=== PATIENT | female | born 1935 | race Caucasian/White ===

== ENCOUNTER 2017-03-11 21:44 | Emergency (ER) | payer MEDICARE ==
[2017-03-11 21:48] VITALS: BP 182/84; PULSE 76; RESP 18; TEMP 98.2
[2017-03-11] MEDS ORDERED: SODIUM CHLORIDE 0.9% 1,000 ML IV STA ×2 (21:58→23:09)
--- NOTE | 2017-03-11 21:58 | ED ---
General Adult HPI - General Chief complaint: Weakness Stated complaint: Weakness Time Seen by Provider: 03/11/17 21:57 Source: patient, family, RN notes reviewed, old records reviewed Mode of arrival: wheelchair Limitations: no limitations - History of Present Illness Initial comments: This is an 81-year-old female here for evaluation of weakness, not acting appropriately, patient's poor historian history obtained from . states patient is not eating that drinking, poor appetite, decreased activity level. - Related Data Home Medications Medication Instructions Recorded Confirmed Atorvastatin [Lipitor] 40 mg PO HS 05/17/15 03/11/17 Latanoprost 1 drop BOTH EYES HS 05/17/15 03/11/17 Omeprazole 40 mg PO QAM 05/17/15 03/11/17 ALPRAZolam [Xanax] 0.25 mg PO TID PRN 03/11/17 03/11/17 Calcium Carbonate/Vitamin D3 1 tab PO DAILY 03/11/17 03/11/17 [Calcium 600-Vit D3 400 Caplet] Gabapentin [Neurontin] 100 mg PO BID 03/11/17 03/11/17 Galantamine HBr [Razadyne] 12 mg PO BID 03/11/17 03/11/17 Magnesium Chloride [Slow Mag] 64 mg PO HS 03/11/17 03/11/17 Memantine [Namenda] 10 mg PO BID 03/11/17 03/11/17 Multivit-Min/Iron/Folic/Lutein 1 tab PO DAILY 03/11/17 03/11/17 [Centrum Silver Women Tablet] traMADol HCL [traMADol HCL ER] 200 mg PO BID 03/11/17 03/11/17 Allergies Allergy/AdvReac Type Severity Reaction Status Date / Time No Known Allergies Allergy Verified 03/11/17 22:28 Review of Systems ROS Statement: Those systems with pertinent positive or pertinent negative responses have been documented in the HPI. ROS Other: All systems not noted in ROS Statement are negative. Past Medical History Past Medical History: Dementia, Eye Disorder, GERD/Reflux, Hearing Disorder / Deafness, Hyperlipidemia, Memory Impairment, Musculoskeletal Disorder, Osteoarthritis (OA) Additional Past Medical History / Comment(s): 05-17-15 SYNCOPAL/FALL EPISODE, OTHER HX: CONSTIPATION, MEMORY PROBLEMS HAS EXELON PATCHES History of Any Multi-Drug Resistant Organisms: None Reported Past Surgical History: Adenoidectomy, Breast Surgery, Hysterectomy, Tonsillectomy, Tubal Ligation Additional Past Surgical History / Comment(s): Bilateral cataract surgeries, right breast lumpectomy 1983, bladder suspension surgery, tubal ligation, colonoscopy in 1999 2006 2011, EGD 2011, bronchoscopy 1987, hemorrhoids, laryngoscope 1989, thumb surgery 2002. 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 Smoking Status: Never smoker Past Alcohol Use History: None Reported Past Drug Use History: None Reported - Past Family History Mother Family Medical History: Coronary Artery Disease (CAD) Father Family Medical History: Dementia Daughter(s) Family Medical History: No Reported History Son(s) Family Medical History: No Reported History General Exam Limitations: no limitations General appearance: alert, in no apparent distress Head exam: Present: atraumatic, normocephalic, normal inspection Eye exam: Present: normal appearance, PERRL, EOMI. Absent: scleral icterus, conjunctival injection, periorbital swelling ENT exam: Present: normal exam, mucous membranes moist Neck exam: Present: normal inspection. Absent: tenderness, meningismus, lymphadenopathy Respiratory exam: Present: normal lung sounds bilaterally. Absent: respiratory distress, wheezes, rales, rhonchi, stridor Cardiovascular Exam: Present: regular rate, normal rhythm, normal heart sounds. Absent: systolic murmur, diastolic murmur, rubs, gallop, clicks GI/Abdominal exam: Present: soft, normal bowel sounds. Absent: distended, tenderness, guarding, rebound, rigid Extremities exam: Present: normal inspection, full ROM, normal capillary refill. Absent: tenderness, pedal edema, joint swelling, calf tenderness Back exam: Present: normal inspection Neurological exam: Present: alert, oriented X3, CN II-XII intact Psychiatric exam: Present: normal affect, normal mood Skin exam: Present: warm, dry, intact, normal color. Absent: rash Course Vital Signs 03/11/17 21:45 Temperature 98.2 F Pulse Rate 76 Respiratory 18 Rate Blood Pressure 182/84 O2 Sat by Pulse 98 Oximetry - Reevaluation(s) Reevaluation #1: 03/11/17 22:17 Further questioning, is concerned with patient's behavior, she was retching and nauseous today. The patient herself continues to deny any complaints at this time EKG Findings - EKG Comments: EKG Findings:: EKG shows normal sinus rhythm rate of 72, DC 144, QRS 86, QTc 413 Medical Decision Making - Medical Decision Making 81 female here with weakness, lab work is normal no urinary tract infection, patient can be discharged home - Lab Data Result diagrams: 03/11/17 22:10 03/11/17 22:10 Lab Results 03/11/17 03/11/17 03/11/17 Range/Units 22:01 22:10 22:10 WBC 3.9 (3.8-10.6) k/uL RBC 4.97 (3.80-5.40) m/uL Hgb 14.9 (11.4-16.0) gm/dL Hct 45.9 (34.0-46.0) % MCV 92.3 (80.0-100.0) fL MCH 30.0 (25.0-35.0) pg MCHC 32.5 (31.0-37.0) g/dL RDW 12.9 (11.5-15.5) % Plt Count 166 (150-450) k/uL Neutrophils % 68 % Lymphocytes % 21 % Monocytes % 8 % Eosinophils % 1 % Basophils % 1 % Neutrophils # 2.7 (1.3-7.7) k/uL Lymphocytes # 0.8 L (1.0-4.8) k/uL Monocytes # 0.3 (0-1.0) k/uL Eosinophils # 0.0 (0-0.7) k/uL Basophils # 0.0 (0-0.2) k/uL PT (9.0-12.0) sec INR (<1.1) APTT (22.0-30.0) sec Sodium (137-145) mmol/L Potassium (3.5-5.1) mmol/L Chloride (98-107) mmol/L Carbon Dioxide (22-30) mmol/L Anion Gap mmol/L BUN (7-17) mg/dL Creatinine (0.52-1.04) mg/dL Est GFR (MDRD) Af Amer (>60 ml/min/1.73 sqM) Est GFR (MDRD) Non-Af (>60 ml/min/1.73 sqM) Glucose (74-99) mg/dL POC Glucose (mg/dL) 95 (75-99) mg/dL POC Glu [employer] ID Inder Richards Plasma Lactic Acid Dejuan (0.7-2.0) mmol/L Calcium (8.4-10.2) mg/dL Phosphorus (2.5-4.5) mg/dL Magnesium (1.6-2.3) mg/dL Total Bilirubin (0.2-1.3) mg/dL AST (14-36) U/L ALT (9-52) U/L Alkaline Phosphatase (38-126) U/L Total Creatine Kinase 181 H (30-135) U/L CK-MB (CK-2) 3.1 H* (0.0-2.4) ng/mL CK-MB (CK-2) Rel Index 1.7 Troponin I <0.012 (0.000-0.034) ng/mL Total Protein (6.3-8.2) g/dL Albumin (3.5-5.0) g/dL TSH (0.465-4.680) mIU/L Urine Color Urine Appearance (Clear) Urine pH (5.0-8.0) Ur Specific [place] (1.001-1.035) Urine Protein (Negative) Urine Glucose (UA) (Negative) Urine Ketones (Negative) Urine Blood (Negative) Urine Nitrite (Negative) Urine Bilirubin (Negative) Urine Urobilinogen (<2.0) mg/dL Ur Leukocyte Esterase (Negative) Urine RBC (0-5) /hpf Urine WBC (0-5) /hpf Urine Mucus (None) /hpf 03/11/17 03/11/17 03/11/17 Range/Units 22:10 22:10 22:10 WBC (3.8-10.6) k/uL RBC (3.80-5.40) m/uL Hgb (11.4-16.0) gm/dL Hct (34.0-46.0) % MCV (80.0-100.0) fL MCH (25.0-35.0) pg MCHC (31.0-37.0) g/dL RDW (11.5-15.5) % Plt Count (150-450) k/uL Neutrophils % % Lymphocytes % % Monocytes % % Eosinophils % % Basophils % % Neutrophils # (1.3-7.7) k/uL Lymphocytes # (1.0-4.8) k/uL Monocytes # (0-1.0) k/uL Eosinophils # (0-0.7) k/uL Basophils # (0-0.2) k/uL PT 10.3 (9.0-12.0) sec INR 1.0 (<1.1) APTT 23.5 (22.0-30.0) sec Sodium 137 (137-145) mmol/L Potassium 4.3 (3.5-5.1) mmol/L Chloride 102 (98-107) mmol/L Carbon Dioxide 29 (22-30) mmol/L Anion Gap 6 mmol/L BUN 14 (7-17) mg/dL Creatinine 0.55 (0.52-1.04) mg/dL Est GFR (MDRD) Af Amer >60 (>60 ml/min/1.73 sqM) Est GFR (MDRD) Non-Af >60 (>60 ml/min/1.73 sqM) Glucose 100 H (74-99) mg/dL POC Glucose (mg/dL) (75-99) mg/dL POC Glu [employer] ID Plasma Lactic Acid Dejuan 0.7 (0.7-2.0) mmol/L Calcium 9.2 (8.4-10.2) mg/dL Phosphorus 3.2 (2.5-4.5) mg/dL Magnesium 2.0 (1.6-2.3) mg/dL Total Bilirubin 1.1 (0.2-1.3) mg/dL AST 37 H (14-36) U/L ALT 31 (9-52) U/L Alkaline Phosphatase 41 (38-126) U/L Total Creatine Kinase (30-135) U/L CK-MB (CK-2) (0.0-2.4) ng/mL CK-MB (CK-2) Rel Index Troponin I (0.000-0.034) ng/mL Total Protein 6.9 (6.3-8.2) g/dL Albumin 4.3 (3.5-5.0) g/dL TSH 0.885 (0.465-4.680) mIU/L Urine Color Urine Appearance (Clear) Urine pH (5.0-8.0) Ur Specific [place] (1.001-1.035) Urine Protein (Negative) Urine Glucose (UA) (Negative) Urine Ketones (Negative) Urine Blood (Negative) Urine Nitrite (Negative) Urine Bilirubin (Negative) Urine Urobilinogen (<2.0) mg/dL Ur Leukocyte Esterase (Negative) Urine RBC (0-5) /hpf Urine WBC (0-5) /hpf Urine Mucus (None) /hpf 03/11/17 Range/Units 23:00 WBC (3.8-10.6) k/uL RBC (3.80-5.40) m/uL Hgb (11.4-16.0) gm/dL Hct (34.0-46.0) % MCV (80.0-100.0) fL MCH (25.0-35.0) pg MCHC (31.0-37.0) g/dL RDW (11.5-15.5) % Plt Count (150-450) k/uL Neutrophils % % Lymphocytes % % Monocytes % % Eosinophils % % Basophils % % Neutrophils # (1.3-7.7) k/uL Lymphocytes # (1.0-4.8) k/uL Monocytes # (0-1.0) k/uL Eosinophils # (0-0.7) k/uL Basophils # (0-0.2) k/uL PT (9.0-12.0) sec INR (<1.1) APTT (22.0-30.0) sec Sodium (137-145) mmol/L Potassium (3.5-5.1) mmol/L Chloride (98-107) mmol/L Carbon Dioxide (22-30) mmol/L Anion Gap mmol/L BUN (7-17) mg/dL Creatinine (0.52-1.04) mg/dL Est GFR (MDRD) Af Amer (>60 ml/min/1.73 sqM) Est GFR (MDRD) Non-Af (>60 ml/min/1.73 sqM) Glucose (74-99) mg/dL POC Glucose (mg/dL) (75-99) mg/dL POC Glu [employer] ID Plasma Lactic Acid Dejuan (0.7-2.0) mmol/L Calcium (8.4-10.2) mg/dL Phosphorus (2.5-4.5) mg/dL Magnesium (1.6-2.3) mg/dL Total Bilirubin (0.2-1.3) mg/dL AST (14-36) U/L ALT (9-52) U/L Alkaline Phosphatase (38-126) U/L Total Creatine Kinase (30-135) U/L CK-MB (CK-2) (0.0-2.4) ng/mL CK-MB (CK-2) Rel Index Troponin I (0.000-0.034) ng/mL Total Protein (6.3-8.2) g/dL Albumin (3.5-5.0) g/dL TSH (0.465-4.680) mIU/L Urine Color Light Yellow Urine Appearance Clear (Clear) Urine pH 7.5 (5.0-8.0) Ur Specific [place] 1.006 (1.001-1.035) Urine Protein Negative (Negative) Urine Glucose (UA) Negative (Negative) Urine Ketones 1+ H (Negative) Urine Blood Negative (Negative) Urine Nitrite Negative (Negative) Urine Bilirubin Negative (Negative) Urine Urobilinogen <2.0 (<2.0) mg/dL Ur Leukocyte Esterase Moderate H (Negative) Urine RBC <1 (0-5) /hpf Urine WBC 3 (0-5) /hpf Urine Mucus Rare H (None) /hpf - Radiology Data Radiology results: report reviewed (Chest x-ray is negative for acute disease), image reviewed Disposition Clinical Impression: Dehydration, Weakness Disposition: HOME SELF-CARE Condition: Good Instructions: Weakness (ED) Referrals: Desmond John MD [Primary Care Provider] - 1-2 days
[2017-03-11 22:03] LABS: Glucose,Whole Blood 95 mg/dL (75-99)
[2017-03-11 22:17] LABS: Basophils % (A) 1 %; CH 30.1; CHCM 32.7; Eosinophils % (A) 1 %; HCT 45.9 % (34.0-46.0); HDW 2.39; HGB 14.9 gm/dL (11.4-16.0); Luc # (Auto) 0.07; Luc % (Auto) 2; Lymphocytes # (A) 0.8 k/uL (1.0-4.8); Lymphocytes % (A) 21 %; MCHC 32.5 g/dL (31.0-37.0); MCV 92.3 fL (80.0-100.0); Mean Platelet Volume 6.7; Monocytes # (A) 0.3 k/uL (0-1.0); Monocytes % (A) 8 %; Neutrophils # (A) 2.7 k/uL (1.3-7.7); Neutrophils % (A) 68 %; RBC 4.97 m/uL (3.80-5.40); RDW 12.9 % (11.5-15.5); WBC 3.9 k/uL (3.8-10.6); WBC (Perox) 3.92
[2017-03-11 22:25] LABS: Partial Thromboplastin Time 23.5 sec (22.0-30.0); Prothrombin Time 10.3 sec (9.0-12.0)
[2017-03-11 22:28] LABS: ALT 31 U/L (9-52); AST 37 U/L (14-36); Alkaline Phosphatase 41 U/L (38-126); Anion Gap 6 mmol/L; Blood Urea Nitrogen 14 mg/dL (7-17); Calcium 9.2 mg/dL (8.4-10.2); Carbon Dioxide 29 mmol/L (22-30); Chloride 102 mmol/L (98-107); Glucose 100 mg/dL (74-99); Non-African American GFR(MDRD) >60 (>60 ml/min/1.73 sqM); Phosphorous 3.2 mg/dL (2.5-4.5); Potassium 4.3 mmol/L (3.5-5.1); Sodium 137 mmol/L (137-145); Total Bilirubin 1.1 mg/dL (0.2-1.3); Total Protein 6.9 g/dL (6.3-8.2)
--- NOTE | 2017-03-11 22:42 | XR ---
EXAM: XR Chest, 2 Views CLINICAL HISTORY: Reason: Weakness TECHNIQUE: Frontal and lateral views of the chest. COMPARISON: July 23, 2015. FINDINGS: Lungs: Hyperinflated. No consolidation. Pleural space: Unremarkable. No pleural effusions. No pneumothorax. Heart: Unremarkable. No cardiomegaly. Mediastinum: Unremarkable. Bones/joints: Unremarkable. IMPRESSION: Findings suggestive of chronic obstructive airways disease. Otherwise, no acute cardiopulmonary process.
[2017-03-11 22:44] LABS: Creatine Kinase 181 U/L (30-135)
[2017-03-11 22:57] LABS: Troponin I <0.012 ng/mL (0.000-0.034)
[2017-03-11 23:02] LABS: Creatine Kinase MB 3.1 ng/mL (0.0-2.4)
[2017-03-11 23:12] LABS: Appearance,Urine Clear (Clear); Bilirubin,Urine Negative (Negative); Glucose,Urine (UA) Negative (Negative); Ketones,Urine 1+ (Negative); Leukocyte Esterase,Urine Moderate (Negative); Mucus,Urine Rare /hpf; Nitrite,Urine Negative (Negative); PH, Urine 7.5 (5.0-8.0); Particle Count 768; Protein,Urine Negative (Negative); RBC,Urine <1 /hpf (0-5); Specific Gravity,Urine 1.006 (1.001-1.035); UA Billing (MACRO vs. MICRO) MICRO; Urobilinogen,Urine <2.0 mg/dL (<2.0); WBC,Urine 3 /hpf (0-5)
== END 2017-03-12 | disposition home or self-care (01) ==
LOC: EC 21:44
DX: E86.0 Dehydration (principal); R53.1 Weakness; F03.90 Unspecified dementia, unspecified severity, without behavioral disturbance, psychotic disturbance, mood disturbance, and anxiety; K21.9 Gastro-esophageal reflux disease without esophagitis; E78.5 Hyperlipidemia, unspecified; M19.90 Unspecified osteoarthritis, unspecified site; Z79.891 Long term (current) use of opiate analgesic; Z79.899 Other long term (current) drug therapy
CPT/HCPCS: 36415; 71020; 80053; 81001; 82550; 82553; 83605; 83735; 84100; 84443; 84484; 85025; 85610; 85730; 87086; 93005; 96361; 99285

== ENCOUNTER 2017-03-27 18:48 | Emergency (ER) | payer MEDICARE ==
[2017-03-27] MEDS ORDERED: ONDANSETRON 4 MG/2 ML VIAL IVP STA (20:07)
[2017-03-27] MEDS ORDERED: SODIUM CHLORIDE 0.9% 1,000 ML IV ONE (20:07)
--- NOTE | 2017-03-27 20:20 | ED ---
General Adult HPI - General Chief complaint: Nausea/Vomiting/Diarrhea Stated complaint: NAUSEA,WEAKNESS Time Seen by Provider: 03/27/17 19:39 Source: patient, family, RN notes reviewed Mode of arrival: wheelchair Limitations: no limitations - History of Present Illness Initial comments: 81-year-old female presenting for nausea and vomiting for the past 2 days. states she has a history of dementia. He states she has had decreased appetite over the past 2 days. She has also had recurrent episodes of nausea and vomiting associated with eating. Patient denies any significant abdominal pain associated. Denies any fevers chills. She denies any chest pain or shortness breath. She has not tried any new medications for the symptoms. She is taking her normal medications. She has not had any decreased mental status associated per . states he's been trying to supplement lack of appetite with sure, but she has vomited after drinking these. He denies that she has fallen or had any other injury. - Related Data Home Medications Medication Instructions Recorded Confirmed Atorvastatin [Lipitor] 40 mg PO HS 05/17/15 03/27/17 Latanoprost 1 drop BOTH EYES HS 05/17/15 03/27/17 Omeprazole 40 mg PO QAM 05/17/15 03/27/17 ALPRAZolam [Xanax] 0.25 mg PO TID PRN 03/11/17 03/27/17 Calcium Carbonate/Vitamin D3 1 tab PO DAILY 03/11/17 03/27/17 [Calcium 600-Vit D3 400 Caplet] Gabapentin [Neurontin] 100 mg PO BID 03/11/17 03/27/17 Galantamine HBr [Razadyne] 12 mg PO BID 03/11/17 03/27/17 Magnesium Chloride [Slow Mag] 64 mg PO HS 03/11/17 03/27/17 Memantine [Namenda] 10 mg PO BID 03/11/17 03/27/17 Multivit-Min/Iron/Folic/Lutein 1 tab PO DAILY 03/11/17 03/27/17 [Centrum Silver Women Tablet] traMADol HCL [traMADol HCL ER] 200 mg PO BID 03/11/17 03/27/17 hydrOXYzine HCL 10 mg PO DAILY 03/27/17 03/27/17 Previous Rx's Medication Instructions Recorded Ondansetron Odt [Zofran Odt] 4 mg PO Q8HR PRN #12 tab 03/27/17 Allergies Allergy/AdvReac Type Severity Reaction Status Date / Time No Known Allergies Allergy Verified 03/27/17 20:03 Review of Systems ROS Statement: Those systems with pertinent positive or pertinent negative responses have been documented in the HPI. ROS Other: All systems not noted in ROS Statement are negative. Past Medical History Past Medical History: Dementia, Eye Disorder, GERD/Reflux, Hearing Disorder / Deafness, Hyperlipidemia, Memory Impairment, Musculoskeletal Disorder, Osteoarthritis (OA) Additional Past Medical History / Comment(s): 05-17-15 SYNCOPAL/FALL EPISODE, OTHER HX: CONSTIPATION, MEMORY PROBLEMS HAS EXELON PATCHES History of Any Multi-Drug Resistant Organisms: None Reported Past Surgical History: Adenoidectomy, Breast Surgery, Hysterectomy, Tonsillectomy, Tubal Ligation Additional Past Surgical History / Comment(s): Bilateral cataract surgeries, right breast lumpectomy 1983, bladder suspension surgery, tubal ligation, colonoscopy in 1999 2006 2011, EGD 2011, bronchoscopy 1987, hemorrhoids, laryngoscope 1989, thumb surgery 2002. 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 Smoking Status: Never smoker Past Alcohol Use History: None Reported Past Drug Use History: None Reported - Past Family History Mother Family Medical History: Coronary Artery Disease (CAD) Father Family Medical History: Dementia Daughter(s) Family Medical History: No Reported History Son(s) Family Medical History: No Reported History General Exam - General Exam Comments Initial Comments: General: Awake and Alert. No acute distress. Does not appear acutely ill. Eyes: JESSY, EOM intact. No nystagmus. No scleral icterus. HENT: Atraumatic, normocephalic. Mucous membranes moist. Hard of hearing. Neck: The neck is supple, there is no tenderness or JVD. Cardiovascular: Regular rate and rhythm. No murmur, rub, or gallop is appreciated. Distal pulses intact. Respiratory: Lungs are clear to auscultation bilaterally. No wheezes, rales, rhonchi. No respiratory distress. Gastrointestinal: Soft, Nontender. No rebound or guarding. Non-distended. No masses or organomegaly noted. No CVA tenderness. Musculoskeletal: No tenderness. Normal ROM. No gross deformity. No strength deficits. Neurological: A&Ox2. CN II-XII grossly intact, There are no obvious motor or sensory deficits. Coordination appears grossly intact. Speech is normal. Skin: Skin is warm and dry and no rashes or lesions are noted. Psychiatric: Cooperative, appropriate mood & affect, normal judgment. Limitations: no limitations Course Vital Signs 03/27/17 19:17 Temperature 98.9 F Pulse Rate 70 Respiratory 16 Rate Blood Pressure 154/78 O2 Sat by Pulse 98 Oximetry EKG Findings - EKG Comments: EKG Findings:: EKG 20:19. Normal sinus rhythm. Rate 67. Normal axis. No STEMI. Normal EKG. Medical Decision Making - Medical Decision Making 81-year-old female presenting for nausea and vomiting. Patient appears comfortable on initial examination. Abdomen is nontender without evidence of acute peritonitis. Lab workup and imaging ordered. IV fluids and Zofran ordered. Lab work reviewed and grossly stable. KUB without evidence of acute obstructive process. Patient reevaluated, states she's feeling improved. Discussed uncertain etiology of symptoms at this time. Discussed possible gastroenteritis. Discussed reassuring findings today today and low suspicion of obstruction or severe infectious etiology. Patient was provided with by mouth challenge, which she tolerated without issue. Discussed symptomatic management with Zofran and Rx provided. is comfortable taking her home. Discussed close follow- up with PCP. Discussed concerning signs symptoms are immediate return to the ED. Patient and agreeable with plan and discharge home. - Lab Data Result diagrams: 03/27/17 20:25 03/27/17 20:25 Lab Results 03/27/17 03/27/17 03/27/17 Range/Units 20:25 20:25 20:34 WBC 3.8 (3.8-10.6) k/uL RBC 4.51 (3.80-5.40) m/uL Hgb 13.9 (11.4-16.0) gm/dL Hct 41.8 (34.0-46.0) % MCV 92.7 (80.0-100.0) fL MCH 30.8 (25.0-35.0) pg MCHC 33.2 (31.0-37.0) g/dL RDW 12.9 (11.5-15.5) % Plt Count 170 (150-450) k/uL Neutrophils % 68 % Lymphocytes % 22 % Monocytes % 7 % Eosinophils % 1 % Basophils % 1 % Neutrophils # 2.6 (1.3-7.7) k/uL Lymphocytes # 0.8 L (1.0-4.8) k/uL Monocytes # 0.2 (0-1.0) k/uL Eosinophils # 0.0 (0-0.7) k/uL Basophils # 0.0 (0-0.2) k/uL Sodium 135 L (137-145) mmol/L Potassium 4.1 (3.5-5.1) mmol/L Chloride 100 (98-107) mmol/L Carbon Dioxide 28 (22-30) mmol/L Anion Gap 7 mmol/L BUN 13 (7-17) mg/dL Creatinine 0.53 (0.52-1.04) mg/dL Est GFR (MDRD) Af Amer >60 (>60 ml/min/1.73 sqM) Est GFR (MDRD) Non-Af >60 (>60 ml/min/1.73 sqM) Glucose 90 (74-99) mg/dL Calcium 9.1 (8.4-10.2) mg/dL Magnesium 2.0 (1.6-2.3) mg/dL Total Bilirubin 0.9 (0.2-1.3) mg/dL AST 24 (14-36) U/L ALT 27 (9-52) U/L Alkaline Phosphatase 43 (38-126) U/L Total Protein 6.3 (6.3-8.2) g/dL Albumin 3.9 (3.5-5.0) g/dL Lipase 74 (23-300) U/L Urine Color Colorless Urine Appearance Clear (Clear) Urine pH 8.0 (5.0-8.0) Ur Specific [place] 1.003 (1.001-1.035) Urine Protein Negative (Negative) Urine Glucose (UA) Negative (Negative) Urine Ketones 1+ H (Negative) Urine Blood Negative (Negative) Urine Nitrite Negative (Negative) Urine Bilirubin Negative (Negative) Urine Urobilinogen <2.0 (<2.0) mg/dL Ur Leukocyte Esterase Negative (Negative) - Radiology Data Radiology results: report reviewed, image reviewed Disposition Clinical Impression: Nausea and vomiting, Nonspecific abdominal pain Disposition: HOME SELF-CARE Condition: Stable Instructions: Acute Nausea and Vomiting (ED), Abdominal Pain (ED) Prescriptions: Ondansetron Odt [Zofran Odt] 4 mg PO Q8HR PRN #12 tab PRN Reason: Nausea Referrals: Desmond John MD [Primary Care Provider] - 1-2 days Time of Disposition: 21:55
[2017-03-27 20:43] LABS: Basophils % (A) 1 %; CH 30.5; Eosinophils % (A) 1 %; HCT 41.8 % (34.0-46.0); HDW 2.38; HGB 13.9 gm/dL (11.4-16.0); Luc # (Auto) 0.08; Luc % (Auto) 2; Lymphocytes # (A) 0.8 k/uL (1.0-4.8); Lymphocytes % (A) 22 %; MCH 30.8 pg (25.0-35.0); MCHC 33.2 g/dL (31.0-37.0); MCV 92.7 fL (80.0-100.0); Mean Platelet Volume 7.1; Monocytes # (A) 0.2 k/uL (0-1.0); Monocytes % (A) 7 %; Neutrophils # (A) 2.6 k/uL (1.3-7.7); Neutrophils % (A) 68 %; RBC 4.51 m/uL (3.80-5.40); RDW 12.9 % (11.5-15.5); WBC 3.8 k/uL (3.8-10.6); WBC (Perox) 3.79
[2017-03-27 20:44] LABS: Appearance,Urine Clear (Clear); Bilirubin,Urine Negative (Negative); Glucose,Urine (UA) Negative (Negative); Ketones,Urine 1+ (Negative); Leukocyte Esterase,Urine Negative (Negative); Nitrite,Urine Negative (Negative); Protein,Urine Negative (Negative); Specific Gravity,Urine 1.003 (1.001-1.035); UA Billing (MACRO vs. MICRO) CHEM; Urobilinogen,Urine <2.0 mg/dL (<2.0)
[2017-03-27 20:54] LABS: ALT 27 U/L (9-52); AST 24 U/L (14-36); Alkaline Phosphatase 43 U/L (38-126); Anion Gap 7 mmol/L; Blood Urea Nitrogen 13 mg/dL (7-17); Calcium 9.1 mg/dL (8.4-10.2); Carbon Dioxide 28 mmol/L (22-30); Chloride 100 mmol/L (98-107); Glucose 90 mg/dL (74-99); Non-African American GFR(MDRD) >60 (>60 ml/min/1.73 sqM); Potassium 4.1 mmol/L (3.5-5.1); Sodium 135 mmol/L (137-145); Total Bilirubin 0.9 mg/dL (0.2-1.3); Total Protein 6.3 g/dL (6.3-8.2)
--- NOTE | 2017-03-27 21:23 | XR ---
EXAMINATION TYPE: XR KUB DATE OF EXAM: 03/27/2017 COMPARISON: NONE HISTORY: Weakness TECHNIQUE: 4 views FINDINGS: There is no sign of intestinal obstruction or pneumoperitoneum. Fecal pattern is normal. Th ere is no sign of a mass. There are no pathologic calcifications over the kidneys. Lung bases are jose g ar. IMPRESSION: Nonacute abdomen.
[2017-03-27 22:15] VITALS: BP 165/89; PULSE 78; RESP 18; TEMP 97.9
== END 2017-03-27 22:05 | disposition home or self-care (01) ==
LOC: EC 18:48
DX: R11.2 Nausea with vomiting, unspecified (principal); R10.9 Unspecified abdominal pain; R63.8 Other symptoms and signs concerning food and fluid intake; H91.90 Unspecified hearing loss, unspecified ear; E78.5 Hyperlipidemia, unspecified; K21.9 Gastro-esophageal reflux disease without esophagitis; F03.90 Unspecified dementia, unspecified severity, without behavioral disturbance, psychotic disturbance, mood disturbance, and anxiety; M62.9 Disorder of muscle, unspecified; Z79.891 Long term (current) use of opiate analgesic; Z79.899 Other long term (current) drug therapy
CPT/HCPCS: 99285; 96374; 96361; 36415; 93005; 80053; 82150; 83690; 83735; 85025; 81003; 74000; J2405

== ENCOUNTER 2017-04-24 17:33 | Emergency (ER) | payer MEDICARE ==
[2017-04-24] MEDS ORDERED: SODIUM CHLORIDE 0.9% 1,000 ML IV STA ×2 (18:32)
[2017-04-24] MEDS ORDERED: ONDANSETRON 4 MG/2 ML VIAL IVP STA (18:32)
--- NOTE | 2017-04-24 18:38 | ED ---
General Adult HPI - General Chief complaint: Nausea/Vomiting/Diarrhea Stated complaint: VOMITING X 2 DAYS Time Seen by Provider: 04/24/17 18:13 Source: patient, family, RN notes reviewed, old records reviewed Mode of arrival: wheelchair Limitations: altered mental status - History of Present Illness Initial comments: Chief complaint history of present illness 81-year-old female here with her . He has dementia. He reports that she has frequent episodes of vomiting. Not eating much. Has recently been seen by her family physician and to medications, gabapentin and Lipitor was stopped. Otherwise patient's continuing to take omeprazole, calcium carbonate, galantamine, mag citrate, amantadine, Centrum and tramadol. I did suggest stopping tramadol inasmuch as the patient does not get relief of her back pain from that medication. It could be causing constipation or intestinal problems. reports that she does as well on regular Tylenol. Unless to the patient was sent home on Zofran which worked well while on it. And then the reports she was on scopolamine patches which worked just as well. She had 3 patches that were used over the last 10 days. Last patches removed yesterday. - Related Data Home Medications Medication Instructions Recorded Confirmed Latanoprost 1 drop BOTH EYES HS 05/17/15 04/24/17 Omeprazole 40 mg PO QAM 05/17/15 04/24/17 ALPRAZolam [Xanax] 0.25 mg PO BID 03/11/17 04/24/17 Calcium Carbonate/Vitamin D3 1 tab PO QAM 03/11/17 04/24/17 [Calcium 600-Vit D3 400 Caplet] Galantamine HBr [Razadyne] 12 mg PO BID 03/11/17 04/24/17 Magnesium Chloride [Slow Mag] 64 mg PO HS 03/11/17 04/24/17 Memantine [Namenda] 10 mg PO BID 03/11/17 04/24/17 traMADol HCL [traMADol HCL ER] 200 mg PO BID 03/11/17 04/24/17 Multivitamins, Thera [Multivitamin 1 tab PO QAM 04/24/17 04/24/17 (formulary)] Previous Rx's Medication Instructions Recorded Ondansetron Odt [Zofran Odt] 4 mg PO Q8HR PRN #10 tab 04/24/17 Allergies Allergy/AdvReac Type Severity Reaction Status Date / Time No Known Allergies Allergy Verified 04/24/17 17:39 Review of Systems ROS Statement: Those systems with pertinent positive or pertinent negative responses have been documented in the HPI. Review of systems. The patient is not complaining of any headache or chest pain or shortness of breath breath or back pain denies any abdominal pain no nausea no vomiting. The reports she does have dry heaves yesterday and today. No skin rashes. No complaint of neuro deficits and none noted by her . All systems are reviewed. Past medical problems include dementia, I disorder GERD, hearing disorder, hyperlipidemia, viscous skeletal disorder. Osteoarthritis, she has syncopal episode in May of 2 years ago. Surgeries tonsils and adenoids, breast surgery, hysterectomy, bilateral cataracts. No known ALLERGIES. Family history noncontributory. ROS Other: All systems not noted in ROS Statement are negative. Past Medical History Past Medical History: Dementia, Eye Disorder, GERD/Reflux, Hearing Disorder / Deafness, Hyperlipidemia, Memory Impairment, Musculoskeletal Disorder, Osteoarthritis (OA) Additional Past Medical History / Comment(s): 05-17-15 SYNCOPAL/FALL EPISODE, OTHER HX: CONSTIPATION, MEMORY PROBLEMS HAS EXELON PATCHES History of Any Multi-Drug Resistant Organisms: None Reported Past Surgical History: Adenoidectomy, Breast Surgery, Hysterectomy, Tonsillectomy, Tubal Ligation Additional Past Surgical History / Comment(s): Bilateral cataract surgeries, right breast lumpectomy 1983, bladder suspension surgery, tubal ligation, colonoscopy in 1999 2006 2011, EGD 2011, bronchoscopy 1987, hemorrhoids, laryngoscope 1989, thumb surgery 2002. Past Anesthesia/Blood Transfusion Reactions: Motion Sickness Past Psychological History: No Psychological Hx Reported Smoking Status: Never smoker Past Alcohol Use History: None Reported Past Drug Use History: None Reported - Past Family History Mother Family Medical History: Coronary Artery Disease (CAD) Father Family Medical History: Dementia Daughter(s) Family Medical History: No Reported History Son(s) Family Medical History: No Reported History General Exam - General Exam Comments Initial Comments: General: The patient is awake and alert, in no distress, and does not appear acutely ill. Per she has dry heaves. Scopolamine worked well when the patch was behind her ear as well as Zofran. Vital signs temp 99.3 pulse 82 respiratory rate 16 pulse ox 99% room air blood pressure 160/84. Patient has lost 25 pounds over the past year. This is being investigated by her family doctor. Eye: Pupils are equal, round and reactive to light, extra-ocular movements are intact ; there is normal conjunctiva bilaterally. No signs of icterus. Evidence of cataract surgery. Ears, nose, mouth and throat: There are moist mucous membranes and no oral lesions. Neck: The neck is supple, there is no tenderness , no anterior cervical lymphadenopathy, thyroid not enlarged. Cardiovascular: There is a regular rate and rhythm. No murmur, rub or gallop is appreciated. Respiratory: Lungs are clear to auscultation, respirations are non-labored, breath sounds are equal. No wheezes, stridor, rales, or rhonchi. Gastrointestinal: Soft, non-distended, non-tender abdomen without masses or organomegaly noted. There is no rebound or guarding present. No CVA tenderness. Bowel sounds are unremarkable. Back: There is no tenderness to palpation in the midline. There is no obvious deformity. No rashes noted. states she does complain of back pain for which she is taking tramadol. He says it does not change her complaints. She gets as much relief with Tylenol she does time tramadol. Suggested he switch to Tylenol. Musculoskeletal: Normal ROM, no tenderness, There is no pedal edema. There is no calf tenderness or swelling. Sensation intact. Neurological: No neuro deficits, history of dementia. Skin: Skin is warm and dry and no rashes or lesions are noted. Psychiatric: Dementia Limitations: altered mental status Course Vital Signs 04/24/17 04/24/17 17:35 19:03 Temperature 99.3 F 98.6 F Pulse Rate 82 78 Respiratory 16 18 Rate Blood Pressure 160/84 164/75 O2 Sat by Pulse 99 97 Oximetry Medical Decision Making - Medical Decision Making Medical decision-making. The patient's white count is 4 hemoglobin 14.8 hematocrit of 42.9. Potassium 4.2. BUN 17 creatinine 0.6 to GFR greater than 60. Glucose 97. Amylase lipase normal. X-ray of the abdomen was done and reviewed by radiologist his impression is small bowel demonstrates no evidence for dilatation or air-fluid levels. Gas and fecal material is seen in the nondistended colon. Moderate fecal stasis. No convincing evidence for pneumoperitoneum. No unusual calcifications. Lung bases are clear. The osseous structures are intact. Impression overall nonobstructive bowel gas pattern. As read by Dr. Cabrera The patient be placed on Zofran for nausea. Advised to try a bottle of mag citrate in the morning if she does not have a bowel movement to take a second half of the bottle tomorrow afternoon. Follow-up with family physician. Also advised to stop tramadol and use Tylenol instead. - Lab Data Result diagrams: 04/24/17 19:00 04/24/17 19:00 Lab Results 04/24/17 04/24/17 Range/Units 19:00 19:00 WBC 4.0 (3.8-10.6) k/uL RBC 4.85 (3.80-5.40) m/uL Hgb 14.8 (11.4-16.0) gm/dL Hct 42.9 (34.0-46.0) % MCV 88.4 (80.0-100.0) fL MCH 30.5 (25.0-35.0) pg MCHC 34.5 (31.0-37.0) g/dL RDW 12.6 (11.5-15.5) % Plt Count 181 (150-450) k/uL Neutrophils % 64 % Lymphocytes % 24 % Monocytes % 8 % Eosinophils % 1 % Basophils % 0 % Neutrophils # 2.5 (1.3-7.7) k/uL Lymphocytes # 1.0 (1.0-4.8) k/uL Monocytes # 0.3 (0-1.0) k/uL Eosinophils # 0.0 (0-0.7) k/uL Basophils # 0.0 (0-0.2) k/uL Sodium 136 L (137-145) mmol/L Potassium 4.2 (3.5-5.1) mmol/L Chloride 102 (98-107) mmol/L Carbon Dioxide 27 (22-30) mmol/L Anion Gap 7 mmol/L BUN 17 (7-17) mg/dL Creatinine 0.62 (0.52-1.04) mg/dL Est GFR (MDRD) Af Amer >60 (>60 ml/min/1.73 sqM) Est GFR (MDRD) Non-Af >60 (>60 ml/min/1.73 sqM) Glucose 97 (74-99) mg/dL Calcium 9.4 (8.4-10.2) mg/dL Total Bilirubin 0.7 (0.2-1.3) mg/dL AST 20 (14-36) U/L ALT 25 (9-52) U/L Alkaline Phosphatase 42 (38-126) U/L Total Protein 6.4 (6.3-8.2) g/dL Albumin 4.0 (3.5-5.0) g/dL Amylase 47 (30-110) U/L Lipase 91 (23-300) U/L Disposition Clinical Impression: Constipation Disposition: HOME SELF-CARE Condition: Stable Instructions: Acute Nausea and Vomiting (ED), Constipation (ED) Additional Instructions: Increase water. Use one half bottle of mag citrate in the morning and the second half in the afternoon if you have not had a bowel movement. Stop tramadol and use Tylenol instead. Follow-up with your family physician. Prescriptions: Ondansetron Odt [Zofran Odt] 4 mg PO Q8HR PRN #10 tab PRN Reason: Nausea vomiting Referrals: Desmond John MD [Primary Care Provider] - 1-2 days Time of Disposition: 19:44
[2017-04-24 19:04] VITALS: RESP 18
[2017-04-24 19:13] LABS: Basophils % (A) 0 %; CH 29.8; CHCM 33.8; Eosinophils % (A) 1 %; HCT 42.9 % (34.0-46.0); HDW 2.38; HGB 14.8 gm/dL (11.4-16.0); Luc % (Auto) 3; Lymphocytes % (A) 24 %; MCH 30.5 pg (25.0-35.0); MCHC 34.5 g/dL (31.0-37.0); MCV 88.4 fL (80.0-100.0); Mean Platelet Volume 7.2; Monocytes # (A) 0.3 k/uL (0-1.0); Monocytes % (A) 8 %; Neutrophils # (A) 2.5 k/uL (1.3-7.7); Neutrophils % (A) 64 %; RBC 4.85 m/uL (3.80-5.40); RDW 12.6 % (11.5-15.5); WBC (Perox) 3.89
--- NOTE | 2017-04-24 19:24 | XR ---
EXAMINATION TYPE: XR KUB DATE OF EXAM: 04/24/2017 COMPARISON: NONE HISTORY: Pain TECHNIQUE: Single supine KUB image of the abdomen is obtained FINDINGS: Small bowel demonstrates no evidence for dilatation or air fluid levels. Gas and fecal material is seen in non-distended colon. Moderate fecal stasis. No convincing evidence for pneumoperitoneum. No unusual calcifications. The lung bases are clear. The osseous structures are intact. IMPRESSION: 1. Overall nonobstructive bowel gas pattern.
[2017-04-24 19:25] LABS: ALT 25 U/L (9-52); AST 20 U/L (14-36); Alkaline Phosphatase 42 U/L (38-126); Amylase 47 U/L (30-110); Anion Gap 7 mmol/L; Blood Urea Nitrogen 17 mg/dL (7-17); Calcium 9.4 mg/dL (8.4-10.2); Carbon Dioxide 27 mmol/L (22-30); Chloride 102 mmol/L (98-107); Glucose 97 mg/dL (74-99); Non-African American GFR(MDRD) >60 (>60 ml/min/1.73 sqM); Potassium 4.2 mmol/L (3.5-5.1); Sodium 136 mmol/L (137-145); Total Bilirubin 0.7 mg/dL (0.2-1.3); Total Protein 6.4 g/dL (6.3-8.2)
[2017-04-24] MEDS ORDERED: MAGNESIUM CITRATE 296 ML BOTTLE PO ONE (19:43)
[2017-04-24 20:01] VITALS: BP 132/70; PULSE 71; TEMP 97.9
== END 2017-04-24 20:09 | disposition home or self-care (01) ==
LOC: EC 17:33
DX: K59.00 Constipation, unspecified (principal); R11.2 Nausea with vomiting, unspecified; R19.7 Diarrhea, unspecified; F03.90 Unspecified dementia, unspecified severity, without behavioral disturbance, psychotic disturbance, mood disturbance, and anxiety; K21.9 Gastro-esophageal reflux disease without esophagitis; Z79.891 Long term (current) use of opiate analgesic; Z79.899 Other long term (current) drug therapy
CPT/HCPCS: 36415; 80053; 82150; 83690; 85025; 74000; 99284; 96374; 96361; J2405

== ENCOUNTER 2017-11-23 21:53 | Emergency (ER) | payer MEDICARE ==
[2017-11-23 22:02] VITALS: PULSE 74
--- NOTE | 2017-11-23 22:35 | ED ---
General Adult HPI - General Source: patient, family, RN notes reviewed, old records reviewed Mode of arrival: EMS Limitations: altered mental status, physical limitation <Paco Barnard - Last Filed: 11/24/17 00:34> <Amari Haque - Last Filed: 11/24/17 01:43> - General Chief complaint: Altered Mental Status Stated complaint: Altered Mental Status Time Seen by Provider: 11/23/17 22:08 - History of Present Illness Initial comments: Chief complaint and history of present illness is 89-year-old female brought to emergency by family because of increased agitation. The patient has dementia. And they have noticed that over the past several weeks by evening time she has significant change in personality and behavior. Head night she tries to put covers and blankets over her 's head. 3 times she had leave the room. The patient been evaluated by neurology and she is uncertain medications but per family nothing seems to be working at this time. (Paco Barnard) - Related Data Home Medications Medication Instructions Recorded Confirmed Latanoprost 1 drop BOTH EYES HS 05/17/15 11/14/17 Omeprazole 40 mg PO QAM 05/17/15 11/14/17 ALPRAZolam [Xanax] 0.25 mg PO TID PRN 03/11/17 11/14/17 Calcium Carbonate/Vitamin D3 1 tab PO QAM 03/11/17 11/14/17 [Calcium 600-Vit D3 400 Caplet] Galantamine HBr [Razadyne] 12 mg PO BID 03/11/17 11/14/17 Magnesium Chloride [Slow-Mag] 64 mg PO HS 03/11/17 11/14/17 Memantine [Namenda] 10 mg PO BID 03/11/17 11/14/17 traMADol HCL [traMADol HCL ER] 200 mg PO BID 03/11/17 11/14/17 Multivitamins, Thera [Multivitamin 1 tab PO QAM 04/24/17 11/14/17 (formulary)] Ergocalciferol (Vitamin D2) 50,000 unit PO Q14D 11/14/17 11/14/17 [Vitamin D2] Lactulose 20 gm PO DAILY 11/14/17 11/14/17 Temazepam [Restoril] 15 mg PO HS PRN 02/01/18 02/01/18 Previous Rx's Medication Instructions Recorded Azithromycin [Zithromax] 500 mg PO DAILY #3 tab 11/15/17 Baclofen [Lioresal] 10 mg PO BID #60 tab 11/15/17 Lidocaine 5% Patch [Lidoderm 5% 1 patch TOPICAL DAILY #30 patch 11/15/17 Patch] predniSONE 10 mg PO DAILY #20 tab 11/15/17 Allergies Allergy/AdvReac Type Severity Reaction Status Date / Time No Known Allergies Allergy Verified 11/14/17 07:44 Review of Systems ROS Other: All systems not noted in ROS Statement are negative. <Paco Barnard - Last Filed: 11/24/17 00:34> ROS Other: All systems not noted in ROS Statement are negative. <Amari Haque - Last Filed: 11/24/17 01:43> ROS Statement: Those systems with pertinent positive or pertinent negative responses have been documented in the HPI. Review of systems. Due to the patient's condition she's not choosing to answer questions and denies recently anything that she may suggest have. The patient has had a history of pneumonia just one month ago for which she stated hospital for several days. Also history of urinary tract infection nasal be rechecked. Past medical problems include dementia, anxiety disorder, GERD, hard of hearing , hyperlipidemia, memory impairment, osteoarthritis and episodes of syncope. Surgeries tonsils, adenoids, rest surgery hysterectomy bilateral cataracts. Family history noncontributory. Nonsmoker nondrinker. (Paco Barnard) Past Medical History Past Medical History: Dementia, Eye Disorder, GERD/Reflux, Hearing Disorder / Deafness, Hyperlipidemia, Memory Impairment, Musculoskeletal Disorder, Osteoarthritis (OA) Additional Past Medical History / Comment(s): 8-15 SYNCOPAL/FALL EPISODE, CHRONIC CONSTIPATION, DEMENTIA/ MEMORY PROBLEMS, BILATERAL GLAUCOMA, CHRONIC LOW BACK PAIN, UTIS. History of Any Multi-Drug Resistant Organisms: None Reported Past Surgical History: Adenoidectomy, Breast Surgery, Hysterectomy, Tonsillectomy, Tubal Ligation Additional Past Surgical History / Comment(s): Bilateral cataract surgeries with lens implants, right breast benign lumpectomy 1983, bladder suspension surgery, rectocele, colonoscopy in 1999 2006 2011, EGD 2011, bronchoscopy 1987, hemorrhoids, laryngoscope 1989, L thumb cystectomy 2002. Past Anesthesia/Blood Transfusion Reactions: Motion Sickness Past Psychological History: No Psychological Hx Reported Smoking Status: Never smoker Past Alcohol Use History: None Reported Past Drug Use History: None Reported - Past Family History Mother Family Medical History: Coronary Artery Disease (CAD) Father Family Medical History: Dementia Daughter(s) Family Medical History: No Reported History Son(s) Family Medical History: No Reported History <Paco Barnard - Last Filed: 11/24/17 00:34> General Exam Limitations: altered mental status, physical limitation <Paco Barnard - Last Filed: 11/24/17 00:34> <HaqueAmari - Last Filed: 11/24/17 01:43> - General Exam Comments Initial Comments: General: The patient is awake AND MILDLY AGITATED. fAMILY REPORTS THIS IS AWAY SHE'S BEEN FOR SEVERAL WEEKS AND GETS WORSE AT NIGHT. i ASKED HER PERMISSION TO EXAMINE HER. sHE SAID OKAY. vITAL SIGNS TEMPERATURE 99.1 PULSE 74 , pulse ox 97% room air blood pressure 134/79RESPIRATORY RATE 18 Eye: Pupils are equal, round and reactive to light, extra-ocular movements are intact ; there is normal conjunctiva bilaterally. No signs of icterus. evidence of cataract surgery. Ears, nose, mouth and throat: There are moist mucous membranes and no oral lesions. Neck: neck appears supple, full range of motion. Cardiovascular: There is a regular rate and rhythm. No murmur, rub or gallop is appreciated. Respiratory: Lungs are clear to auscultation, respirations are non-labored, breath sounds are equal. No wheezes, stridor, rales, or rhonchi. Gastrointestinal: patient denies any abdominal pain denies any trouble urinating or bowel movements. Back: denying injury. But she does have chronic back pain. No falls or head injuries. Musculoskeletal: Normal ROM, no tenderness, There is no pedal edema. There is no calf tenderness or swelling. Sensation intact. Neurological: CN II-XII intact, There are no obvious motor or sensory deficits. Coordination appears grossly intact. Speech is normal. Skin: Skin is warm and dry and no rashes or lesions are noted. Psychiatric: dementia, possible pre-Alzheimer. Family describes sundowner's symptoms. per family patient is becoming mean and doing things such as trying to cover her 's head with blankets. (Akil,Paco) Vital Signs 11/23/17 21:59 Temperature 99.1 F Pulse Rate 74 Respiratory 18 Rate Blood Pressure 134/79 O2 Sat by Pulse 97 Oximetry EKG Findings - EKG Comments: EKG Findings:: EKG was done and reviewed at 2244, no evidence of any acute ST elevation no ectopy no ischemic changes. Rate 78 NM interval is 136 QRS [address] QT [address] Barnard <Paco Barnard - Last Filed: 11/24/17 00:34> Medical Decision Making - Lab Data Result diagrams: 11/23/17 22:45 11/23/17 22:45 <Paco Barnard - Last Filed: 11/24/17 00:34> - Lab Data Result diagrams: 11/23/17 22:45 11/23/17 22:45 <Amari Haque - Last Filed: 11/24/17 01:43> - Medical Decision Making Medical decision making; was an 82-year-old female brought emergency room by her and son. 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 Family reports that she is becoming very mean as the day goes on. She has been trying to place pillows and covers over her 's head. This is happened 3 times and he had them move out of the bedroom I can't medication. He is on several medications which don't seem to be helping her dementia. Labs show white count 7.2 hemoglobin 13 hematocrit 41. Potassium is 4.6 BUN 35 creatinine 0.9 GFR 60. Glucose 110. The patient's urine shows evidence of urinary tract infection with 1 red 64 whites large leuk esterase. Chest x-ray was done AP and lateral view and reviewed by radiologist's his final impression is there is clearing of the atelectasis at the lung bases compared to old exam. No heart failure. Minimal pleural reaction or fluid. Stable thoracic spine. As read by Dr. Glover The patient be evaluated by psychiatric nurse. (Paco Barnard) - Lab Data Lab Results 11/23/17 11/23/17 11/24/17 Range/Units 22:45 22:45 00:01 WBC 7.2 (3.8-10.6) k/uL RBC 4.59 (3.80-5.40) m/uL Hgb 13.3 (11.4-16.0) gm/dL Hct 41.3 (34.0-46.0) % MCV 90.0 (80.0-100.0) fL MCH 28.9 (25.0-35.0) pg MCHC 32.1 (31.0-37.0) g/dL RDW 12.2 (11.5-15.5) % Plt Count 224 (150-450) k/uL Neutrophils % 69 % Lymphocytes % 21 % Monocytes % 7 % Eosinophils % 1 % Basophils % 0 % Neutrophils # 4.9 (1.3-7.7) k/uL Lymphocytes # 1.5 (1.0-4.8) k/uL Monocytes # 0.5 (0-1.0) k/uL Eosinophils # 0.1 (0-0.7) k/uL Basophils # 0.0 (0-0.2) k/uL Sodium 139 (137-145) mmol/L Potassium 4.6 (3.5-5.1) mmol/L Chloride 101 (98-107) mmol/L Carbon Dioxide 26 (22-30) mmol/L Anion Gap 12 mmol/L BUN 35 H (7-17) mg/dL Creatinine 0.90 (0.52-1.04) mg/dL Est GFR (MDRD) Af Amer >60 (>60 ml/min/1.73 sqM) Est GFR (MDRD) Non-Af 60 (>60 ml/min/1.73 sqM) Glucose 110 H (74-99) mg/dL Calcium 9.5 (8.4-10.2) mg/dL Total Bilirubin 0.1 L (0.2-1.3) mg/dL AST 18 (14-36) U/L ALT 23 (9-52) U/L Alkaline Phosphatase 48 (38-126) U/L Total Protein 6.3 (6.3-8.2) g/dL Albumin 3.8 (3.5-5.0) g/dL Urine Color Yellow Urine Appearance Cloudy H (Clear) Urine pH 6.0 (5.0-8.0) Ur Specific [place] 1.023 (1.001-1.035) Urine Protein Trace H (Negative) Urine Glucose (UA) Negative (Negative) Urine Ketones Negative (Negative) Urine Blood Negative (Negative) Urine Nitrite Negative (Negative) Urine Bilirubin Negative (Negative) Urine Urobilinogen <2.0 (<2.0) mg/dL Ur Leukocyte Esterase Large H (Negative) Urine RBC 1 (0-5) /hpf Urine WBC 64 H (0-5) /hpf Ur Squamous Epith Cells 6 H (0-4) /hpf Urine Bacteria Rare H (None) /hpf Urine Mucus Occasional H (None) /hpf Urine Opiates Screen Detected H (NotDetected) Ur Oxycodone Screen Not Detected (NotDetected) Urine Methadone Screen Not Detected (NotDetected) Ur Propoxyphene Screen Not Detected (NotDetected) Ur Barbiturates Screen Not Detected (NotDetected) U Tricyclic Antidepress Not Detected (NotDetected) Ur Phencyclidine Scrn Not Detected (NotDetected) Ur Amphetamines Screen Not Detected (NotDetected) U Methamphetamines Scrn Not Detected (NotDetected) U Benzodiazepines Scrn Detected H (NotDetected) Urine Cocaine Screen Not Detected (NotDetected) U Marijuana (THC) Screen Not Detected (NotDetected) Serum Alcohol <10 mg/dL Disposition <Paco Barnard - Last Filed: 11/24/17 00:34> Time of Disposition: 01:42 <Amari Haque - Last Filed: 11/24/17 01:43> Clinical Impression: Dementia Disposition: HOME SELF-CARE Instructions: Dementia (ED) Additional Instructions: Patient should take 0.5 of Xanax in the evening prior to bed. Patient should follow-up with Dr. John as soon as possible Referrals: Desmond John MD [Primary Care Provider] - 1-2 days
[2017-11-23 22:54] LABS: Basophils % (A) 0 %; Eosinophils # (A) 0.1 k/uL (0-0.7); Eosinophils % (A) 1 %; HCT 41.3 % (34.0-46.0); HGB 13.3 gm/dL (11.4-16.0); Lymphocytes # (A) 1.5 k/uL (1.0-4.8); Lymphocytes % (A) 21 %; MCH 28.9 pg (25.0-35.0); MCHC 32.1 g/dL (31.0-37.0); Mean Platelet Volume 6.8; Monocytes # (A) 0.5 k/uL (0-1.0); Monocytes % (A) 7 %; Neutrophils # (A) 4.9 k/uL (1.3-7.7); Neutrophils % (A) 69 %; Platelet Count 224 k/uL (150-450); RBC 4.59 m/uL (3.80-5.40); RDW 12.2 % (11.5-15.5); WBC 7.2 k/uL (3.8-10.6)
[2017-11-23 23:05] LABS: ALT 23 U/L (9-52); AST 18 U/L (14-36); Albumin 3.8 g/dL (3.5-5.0); Alcohol <10 mg/dL; Alkaline Phosphatase 48 U/L (38-126); Anion Gap 12 mmol/L; Blood Urea Nitrogen 35 mg/dL (7-17); Calcium 9.5 mg/dL (8.4-10.2); Carbon Dioxide 26 mmol/L (22-30); Chloride 101 mmol/L (98-107); Glucose 110 mg/dL (74-99); Potassium 4.6 mmol/L (3.5-5.1); Sodium 139 mmol/L (137-145); Total Bilirubin 0.1 mg/dL (0.2-1.3); Total Protein 6.3 g/dL (6.3-8.2)
--- NOTE | 2017-11-23 23:57 | XR ---
EXAMINATION TYPE: XR chest 2V DATE OF EXAM: 11/23/2017 COMPARISON: 11/15/2017 HISTORY: Altered mental status TECHNIQUE: Frontal and lateral views of the chest are obtained. FINDINGS: Heart is normal. There is coarsening of interstitial markings. There is very slight blunti ng of the posterior costophrenic angles. There is no heart failure. Bony thorax shows osteopenia and slight anterior wedging of one mid thoracic vertebra. IMPRESSION: There is clearing of the atelectasis at the lung bases compared to old exam. No heart fa ilure. Minimal pleural reaction or fluid. Stable thoracic spine.
[2017-11-24 00:30] LABS: Appearance,Urine Cloudy (Clear); Bacteria,Urine Rare /hpf; Bilirubin,Urine Negative (Negative); Blood,Urine Negative (Negative); Color,Urine Yellow; Glucose,Urine (UA) Negative (Negative); Ketones,Urine Negative (Negative); Leukocyte Esterase,Urine Large (Negative); Mucus,Urine Occasional /hpf; Nitrite,Urine Negative (Negative); Protein,Urine Trace (Negative); RBC,Urine 1 /hpf (0-5); Specific Gravity,Urine 1.023 (1.001-1.035); Squamous Epithelial Cell,Urine 6 /hpf (0-4); Urobilinogen,Urine <2.0 mg/dL (<2.0); WBC,Urine 64 /hpf (0-5)
[2017-11-24 00:36] LABS: Amphetamine Screen,Urine Not Detected (NotDetected); Barbiturate Screen,Urine Not Detected (NotDetected); Benzodiazepines Screen,Urine Detected (NotDetected); Cocaine Screen,Urine Not Detected (NotDetected); Methadone Screen, Urine Not Detected (NotDetected); Opiate Screen,Urine Detected (NotDetected); Oxycodone Screen, Urine Not Detected (NotDetected); Phencyclidine Screen,Urine Not Detected (NotDetected); Tricyclic Antidepressant,Urine Not Detected (NotDetected); Urn Cannabinoid Scrn Not Detected (NotDetected)
[2017-11-24] MEDS ORDERED: SULFAMETH-TMP DS STARTER PACK 2 TAB BTL PO STA (00:51)
[2017-11-24] MEDS ORDERED: LORazepam 1 MG TAB PO STA (01:43)
[2017-11-24 02:14] VITALS: BP 138/80; RESP 16; TEMP 98.8
== END 2017-11-24 02:09 | disposition home or self-care (01) ==
LOC: EC 21:53
DX: G30.0 Alzheimer's disease with early onset (principal); F02.80 Dementia in other diseases classified elsewhere, unspecified severity, without behavioral disturbance, psychotic disturbance, mood disturbance, and anxiety; F05 Delirium due to known physiological condition; N39.0 Urinary tract infection, site not specified; J98.11 Atelectasis; K21.9 Gastro-esophageal reflux disease without esophagitis; H91.90 Unspecified hearing loss, unspecified ear; F41.9 Anxiety disorder, unspecified; E78.5 Hyperlipidemia, unspecified; Z79.899 Other long term (current) drug therapy
CPT/HCPCS: 36415; 71046; 80053; 80306; 80320; 81001; 85025; 87077; 87086; 87186; 93005; 99285

== ENCOUNTER 2017-11-29 10:24 | Inpatient (IN) | payer MEDICARE ==
--- NOTE | 2017-11-29 11:35 | ED ---
Altered Mental Status HPI - General Chief Complaint: Altered Mental Status Stated Complaint: not taking medication Time Seen by Provider: 11/29/17 11:15 Source: family, EMS Mode of arrival: EMS Limitations: altered mental status - History of Present Illness Initial Comments: This is an 82 year old female who presents to the ED today accompanied by her for altered mental status. History is obtained from the due to the patient was sleeping. The states she stopped taking her medication yesterday for her dementia. She did take 0.25mg of Restoril approximately 12 hours ago. The patient was seen by her primary care provider, Dr. Goldsmith, on 11/26/2017 where she had an episode of agitation. She also had a recent urinary tract infection about six days ago. The is very concerned because he is unable to care for this patient on his own. - Related Data Home Medications Medication Instructions Recorded Confirmed Omeprazole 40 mg PO QAM 05/17/15 11/29/17 ALPRAZolam [Xanax] 0.25 mg PO TID PRN 03/11/17 11/29/17 Calcium Carbonate/Vitamin D3 1 tab PO QAM 03/11/17 11/29/17 [Calcium 600-Vit D3 400 Caplet] Galantamine HBr [Razadyne] 12 mg PO BID 03/11/17 11/29/17 Magnesium Chloride [Slow-Mag] 64 mg PO HS 03/11/17 11/29/17 Memantine [Namenda] 10 mg PO BID 03/11/17 11/29/17 Multivitamins, Thera [Multivitamin 1 tab PO QAM 04/24/17 11/29/17 (formulary)] Sertraline HCl [Zoloft] 25 mg PO DAILY 11/29/17 11/29/17 risperiDONE 0.5 mg PO BID 11/29/17 11/29/17 Previous Rx's Medication Instructions Recorded Baclofen [Lioresal] 10 mg PO BID #60 tab 11/15/17 Allergies Allergy/AdvReac Type Severity Reaction Status Date / Time No Known Allergies Allergy Verified 11/29/17 11:22 Review of Systems ROS Statement: Those systems with pertinent positive or pertinent negative responses have been documented in the HPI. ROS Other: All systems not noted in ROS Statement are negative. Past Medical History Past Medical History: Dementia, Eye Disorder, GERD/Reflux, Hearing Disorder / Deafness, Hyperlipidemia, Memory Impairment, Musculoskeletal Disorder, Osteoarthritis (OA) Additional Past Medical History / Comment(s): 8-4-15 SYNCOPAL/FALL EPISODE, CHRONIC CONSTIPATION, DEMENTIA/ MEMORY PROBLEMS, BILATERAL GLAUCOMA, CHRONIC LOW BACK PAIN, UTIS. History of Any Multi-Drug Resistant Organisms: None Reported Past Surgical History: Adenoidectomy, Breast Surgery, Hysterectomy, Tonsillectomy, Tubal Ligation Additional Past Surgical History / Comment(s): Bilateral cataract surgeries with lens implants, right breast benign lumpectomy 1983, bladder suspension surgery, rectocele, colonoscopy in 1999 2006 2011, EGD 2011, bronchoscopy 1987, hemorrhoids, laryngoscope 1989, L thumb cystectomy 2002. Past Anesthesia/Blood Transfusion Reactions: Motion Sickness Past Psychological History: No Psychological Hx Reported Smoking Status: Never smoker Past Alcohol Use History: None Reported Past Drug Use History: None Reported - Past Family History Mother Family Medical History: Coronary Artery Disease (CAD) Father Family Medical History: Dementia Daughter(s) Family Medical History: No Reported History Son(s) Family Medical History: No Reported History General Exam Limitations: altered mental status Neurological exam: Present: alert, other (The patient appears calm and sleeping. She occasionally opens her eyes, but does not engage in any conversation.) Skin exam: Present: warm, dry, intact, normal color. Absent: rash Course Vital Signs 11/29/17 11/29/17 11/29/17 10:27 11:37 12:25 Temperature 98.3 F Pulse Rate 68 70 76 Respiratory 18 18 18 Rate Blood Pressure 148/78 144/80 170/83 O2 Sat by Pulse 95 95 99 Oximetry Medical Decision Making - Medical Decision Making 82-year-old female presented for change in behavior not taking care of herself. Patient will be admitted for placement, treatment of pneumonia. - Lab Data Result diagrams: 11/29/17 11:51 11/29/17 11:51 Lab Results 11/29/17 11/29/17 11/29/17 Range/Units 11:51 11:51 12:18 WBC 6.6 (3.8-10.6) k/uL RBC 4.74 (3.80-5.40) m/uL Hgb 13.7 (11.4-16.0) gm/dL Hct 42.9 (34.0-46.0) % MCV 90.4 (80.0-100.0) fL MCH 28.9 (25.0-35.0) pg MCHC 32.0 (31.0-37.0) g/dL RDW 12.1 (11.5-15.5) % Plt Count 171 (150-450) k/uL Neutrophils % 75 % Lymphocytes % 15 % Monocytes % 7 % Eosinophils % 1 % Basophils % 0 % Neutrophils # 4.9 (1.3-7.7) k/uL Lymphocytes # 1.0 (1.0-4.8) k/uL Monocytes # 0.5 (0-1.0) k/uL Eosinophils # 0.1 (0-0.7) k/uL Basophils # 0.0 (0-0.2) k/uL Sodium 140 (137-145) mmol/L Potassium 4.5 (3.5-5.1) mmol/L Chloride 103 (98-107) mmol/L Carbon Dioxide 30 (22-30) mmol/L Anion Gap 7 mmol/L BUN 15 (7-17) mg/dL Creatinine 0.59 (0.52-1.04) mg/dL Est GFR (MDRD) Af Amer >60 (>60 ml/min/1.73 sqM) Est GFR (MDRD) Non-Af >60 (>60 ml/min/1.73 sqM) Glucose 92 (74-99) mg/dL Calcium 9.4 (8.4-10.2) mg/dL Total Bilirubin 0.5 (0.2-1.3) mg/dL AST 25 (14-36) U/L ALT 27 (9-52) U/L Alkaline Phosphatase 50 (38-126) U/L Total Protein 6.3 (6.3-8.2) g/dL Albumin 3.7 (3.5-5.0) g/dL Urine Color Light Yellow Urine Appearance Clear (Clear) Urine pH 8.0 (5.0-8.0) Ur Specific [place] 1.007 (1.001-1.035) Urine Protein Negative (Negative) Urine Glucose (UA) Negative (Negative) Urine Ketones Negative (Negative) Urine Blood Negative (Negative) Urine Nitrite Negative (Negative) Urine Bilirubin Negative (Negative) Urine Urobilinogen <2.0 (<2.0) mg/dL Ur Leukocyte Esterase Negative (Negative) Disposition Clinical Impression: Dementia, Pneumonia, Noncompliance with medication regimen Disposition: ADMITTED IP TO THIS HOSP Condition: Fair Referrals: Desmond John MD [Primary Care Provider] - 1-2 days
[2017-11-29 12:13] LABS: Basophils % (A) 0 %; Eosinophils # (A) 0.1 k/uL (0-0.7); Eosinophils % (A) 1 %; HCT 42.9 % (34.0-46.0); HGB 13.7 gm/dL (11.4-16.0); Lymphocytes % (A) 15 %; MCH 28.9 pg (25.0-35.0); MCV 90.4 fL (80.0-100.0); Monocytes # (A) 0.5 k/uL (0-1.0); Monocytes % (A) 7 %; Neutrophils # (A) 4.9 k/uL (1.3-7.7); Neutrophils % (A) 75 %; Platelet Count 171 k/uL (150-450); RBC 4.74 m/uL (3.80-5.40); RDW 12.1 % (11.5-15.5); WBC 6.6 k/uL (3.8-10.6)
--- NOTE | 2017-11-29 12:17 | XR ---
EXAMINATION TYPE: XR chest 2V DATE OF EXAM: 11/29/2017 COMPARISON: 11/23/2017 HISTORY: 82-year-old female with cough and pain TECHNIQUE: Frontal and lateral views FINDINGS: Heart normal size. Aorta and pulmonary vasculature within normal limits. Patchy bibasilar densities e specially posteriorly on the lateral view with trace effusions. IMPRESSION: Patchy bibasilar infiltrates with trace effusions. Especially seen on the lateral view. Correlate for infectious or aspiration pneumonitis.
[2017-11-29 12:20] LABS: ALT 27 U/L (9-52); AST 25 U/L (14-36); Albumin 3.7 g/dL (3.5-5.0); Alkaline Phosphatase 50 U/L (38-126); Anion Gap 7 mmol/L; Blood Urea Nitrogen 15 mg/dL (7-17); Calcium 9.4 mg/dL (8.4-10.2); Carbon Dioxide 30 mmol/L (22-30); Chloride 103 mmol/L (98-107); Glucose 92 mg/dL (74-99); Potassium 4.5 mmol/L (3.5-5.1); Sodium 140 mmol/L (137-145); Total Bilirubin 0.5 mg/dL (0.2-1.3); Total Protein 6.3 g/dL (6.3-8.2)
[2017-11-29 12:41] LABS: Appearance,Urine Clear (Clear); Bilirubin,Urine Negative (Negative); Blood,Urine Negative (Negative); Color,Urine Light Yellow; Glucose,Urine (UA) Negative (Negative); Ketones,Urine Negative (Negative); Leukocyte Esterase,Urine Negative (Negative); Nitrite,Urine Negative (Negative); Protein,Urine Negative (Negative); Specific Gravity,Urine 1.007 (1.001-1.035); Urobilinogen,Urine <2.0 mg/dL (<2.0)
[2017-11-29] MEDS ORDERED: LEVOFLOXACIN 750MG-D5W PMX 750 MG in DEXTROSE/WATER 1 150ML.BAG IVPB STA (13:28)
[2017-11-29] MEDS ORDERED: PNEUMONIA PROTOCOL UTILIZED 1 EACH MISC PO PRN (13:29)
[2017-11-29] MEDS: HALOPERIDOL LACTATE 5 MG/ML 1 ML VIAL IM PRN (19:39)
[2017-11-29] MEDS: MEMANTINE 10 MG TAB PO SCH (20:10)
[2017-11-29] MEDS: risperiDONE 0.5 MG TAB PO SCH (20:10)
[2017-11-29] MEDS: MAGNESIUM OXIDE 400 MG TAB PO SCH (20:15)
[2017-11-29] MEDS: HEPARIN SODIUM,PORCINE 5,000 UNIT/ML 1 ML VIAL SQ SCH (21:32)
[2017-11-30] MEDS: HEPARIN SODIUM,PORCINE 5,000 UNIT/ML 1 ML VIAL SQ SCH ×2 (07:13→21:43)
[2017-11-30 07:23] LABS: Basophils % (A) 0 %; Eosinophils % (A) 0 %; HCT 40.9 % (34.0-46.0); HGB 13.1 gm/dL (11.4-16.0); Lymphocytes # (A) 0.9 k/uL (1.0-4.8); Lymphocytes % (A) 13 %; MCH 28.8 pg (25.0-35.0); MCHC 32.1 g/dL (31.0-37.0); MCV 89.9 fL (80.0-100.0); Mean Platelet Volume 6.9; Monocytes # (A) 0.4 k/uL (0-1.0); Monocytes % (A) 6 %; Neutrophils # (A) 5.7 k/uL (1.3-7.7); Neutrophils % (A) 80 %; Platelet Count 176 k/uL (150-450); RBC 4.55 m/uL (3.80-5.40); RDW 12.2 % (11.5-15.5); WBC 7.1 k/uL (3.8-10.6)
--- NOTE | 2017-11-30 07:27 | XR ---
EXAMINATION TYPE: XR chest 1V portable DATE OF EXAM: 11/30/2017 HISTORY: pneumonia. REFERENCE: Previous study dated 11/29/2017. FINDINGS: There is a dextroscoliosis. Heart size is upper limits of normal. There is increased opacit y at the right lung base. Pleural spaces appear clear. IMPRESSION: WORSENING OPACITY RIGHT LUNG BASE MAY REFLECT WORSENING PNEUMONIA.
[2017-11-30 07:43] LABS: ALT 24 U/L (9-52); AST 24 U/L (14-36); Albumin 3.4 g/dL (3.5-5.0); Alkaline Phosphatase 47 U/L (38-126); Anion Gap 9 mmol/L; Blood Urea Nitrogen 14 mg/dL (7-17); Calcium 9.4 mg/dL (8.4-10.2); Carbon Dioxide 28 mmol/L (22-30); Chloride 104 mmol/L (98-107); Glucose 111 mg/dL (74-99); Potassium 4.5 mmol/L (3.5-5.1); Sodium 141 mmol/L (137-145); Total Bilirubin 0.5 mg/dL (0.2-1.3); Total Protein 5.9 g/dL (6.3-8.2)
[2017-11-30] MEDS: SERTRALINE 25 MG TAB PO SCH (08:05)
[2017-11-30] MEDS: MULTIVITAMINS, THERA 1 EACH TAB PO SCH (08:05)
[2017-11-30] MEDS: CALCIUM CARB-VIT D 500MG-200UN 1 EACH TAB PO SCH (08:05)
[2017-11-30] MEDS: MEMANTINE 10 MG TAB PO SCH ×2 (08:05→21:27)
[2017-11-30] MEDS: DONEPEZIL 10 MG TAB PO SCH (08:05)
[2017-11-30] MEDS: risperiDONE 0.5 MG TAB PO SCH ×2 (08:05→21:28)
[2017-11-30] MEDS: ALPRAZolam 0.25 MG TAB PO PRN ×2 (09:28→18:08)
[2017-11-30] MEDS: HALOPERIDOL LACTATE 5 MG/ML 1 ML VIAL IM PRN ×2 (09:46→21:35)
--- NOTE | 2017-11-30 13:02 | P.HPIM ---
History of Present Illness H&P Date: 11/30/17 Chief Complaint: Altered mental status This is 82 years old female with past medical history significant for advanced dementia presents to the emergency department with worsening mental status according to her who is at the bedside. and son-in-law at the bedside admitting having worsening in her mentation over the last 6 month and much worse in the last 1 month where patient was taken to her primary care physician and was treated for urinary tract infection with 6 days course of antibiotics that she completed the patient continued to decline and then the last 5 days patient has been refusing her medication especially had oral medication and being agitated and restless and fighting with her and her son and becoming overwhelming at home. In the emergency department chest x- ray showed worsening consolidation on the right lower lobe and patient was admitted for pneumonia and worsening mentation. Patient currently is lethargic and sleepy due to frequent medication and sedation patient had difficulty night where she was extremely combative agitated pulled out her IVs and was requiring setup 24 7 to be at the bedside. No history of tobacco alcohol or drug abuse and patient quit taking her medication almost a week ago. Patient had significant weight loss for greater than 20 pounds over the last 6 month becoming dependent on all 6 out of 6 of her daily activities incontinence for bowel and bladder most of the time and patient's is confused and agitated not able to recognize even family members but still can speak in more than 6 words Review of Systems Unable to obtain due to patient's condition but negative other than what mentioned in HPI Past Medical History Past Medical History: Dementia, Eye Disorder, GERD/Reflux, Hearing Disorder / Deafness, Hyperlipidemia, Memory Impairment, Musculoskeletal Disorder, Osteoarthritis (OA) Additional Past Medical History / Comment(s): 8 SYNCOPAL/FALL EPISODE, CHRONIC CONSTIPATION, DEMENTIA/ MEMORY PROBLEMS, BILATERAL GLAUCOMA, CHRONIC LOW BACK PAIN, UTI'S. FULL UPPER PLATE "THAT SNAPS IN PLACE" AND LOWER PARTIAL History of Any Multi-Drug Resistant Organisms: None Reported Past Surgical History: Adenoidectomy, Breast Surgery, Hysterectomy, Tonsillectomy, Tubal Ligation Additional Past Surgical History / Comment(s): Bilateral cataract surgeries with lens implants, right breast benign lumpectomy 1983, bladder suspension surgery, rectocele, colonoscopy in 1999 2006 2011, EGD 2011, bronchoscopy 1987, hemorrhoids, laryngoscope 1989, L thumb cystectomy 2002. Past Anesthesia/Blood Transfusion Reactions: Motion Sickness Smoking Status: Never smoker - Past Family History Mother Family Medical History: Coronary Artery Disease (CAD) Father Family Medical History: Dementia Daughter(s) Family Medical History: No Reported History Son(s) Family Medical History: No Reported History Medications and Allergies Home Medications Medication Instructions Recorded Confirmed Type Omeprazole 40 mg PO QAM 05/17/15 11/29/17 History ALPRAZolam [Xanax] 0.25 mg PO TID PRN 03/11/17 11/29/17 History Calcium Carbonate/Vitamin D3 1 tab PO QAM 03/11/17 11/29/17 History [Calcium 600-Vit D3 400 Caplet] Galantamine HBr [Razadyne] 12 mg PO BID 03/11/17 11/29/17 History Magnesium Chloride [Slow-Mag] 64 mg PO HS 03/11/17 11/29/17 History Memantine [Namenda] 10 mg PO BID 03/11/17 11/29/17 History Multivitamins, Thera [Multivitamin 1 tab PO QAM 04/24/17 11/29/17 History (formulary)] Baclofen [Lioresal] 10 mg PO BID #60 tab 11/15/17 11/29/17 Rx Sertraline HCl [Zoloft] 25 mg PO DAILY 11/29/17 11/29/17 History risperiDONE 0.5 mg PO BID 11/29/17 11/29/17 History Allergies Allergy/AdvReac Type Severity Reaction Status Date / Time No Known Allergies Allergy Verified 11/29/17 11:22 Physical Exam Vitals: Vital Signs Temp Pulse Pulse Resp BP BP Pulse Ox 11/30/17 08:00 16 11/30/17 07:00 97 F L 81 16 148/68 100 11/29/17 23:00 97 F L 116 H 17 168/82 93 L 11/29/17 17:02 98.6 F 88 18 108/66 100 11/29/17 15:43 97.6 F 87 18 120/66 98 11/29/17 14:00 68 18 164/94 99 Intake and Output 11/29/17 11/30/17 11/30/17 22:59 06:59 14:59 Intake Total 100 Balance 100 Intake: Oral 100 Other: Voiding Method Diaper Incontinent # Voids 2 Gen.: in her stated age, no acute distress Heart: Normal S1-S2 Lungs: Clear to auscultation bilaterally Abdomen: Soft, no tenderness, positive bowel sounds in all 4 quadrant no guarding or rebound Skin: No new rash Psych: Alert and oriented 0 Neuro: Limited due to patient's condition Results CBC & Chem 7: 11/30/17 07:06 11/30/17 07:06 Labs: Abnormal Lab Results - Last 24 Hours (Table) 11/30/17 11/30/17 Range/Units 07:06 07:06 Lymphocytes # 0.9 L (1.0-4.8) k/uL Glucose 111 H (74-99) mg/dL Total Protein 5.9 L (6.3-8.2) g/dL Albumin 3.4 L (3.5-5.0) g/dL Assessment and Plan Assessment: 1. Acute encephalopathy. Multifactorial in nature including major factor off worsening dementia and significant declining in her functional and cognitive condition. Other etiologies include recent urinary tract infection current possibility for right lower lobe pneumonia suggesting ongoing aspiration. 2. Right lower lobe pneumonia likely suggesting aspiration patient is afebrile with normal white blood count I would like to continue monitoring closely and have speech evaluate the patient once she is more awake. Plan discussed with the and son at the bedside needed 3. Serial debility and deconditioning. We'll have physical and occasional therapy evaluation and I discussed with the patient son and that patient 's meet the criteria for hospice admission given the significant declining in her functional and cognitive function, ongoing weight loss for greater than 20 pounds in the last 6 month, recurrent infection and likely dysphagia with aspiration. I would like to consult hospice" that is determined to be DO NOT RESUSCITATE at this point. 4. Hyperlipidemia. We'll introduce her medication once patient is more awake. 5. GERD. We will continue her home medication. 6. Agitation and restlessness. I prescribed Haldol 2 mg IM every 4 hours as needed but I would like to obtain psychiatric evaluation for medication recommendation and we will follow-up with the recommendation. 7. CODE STATUS DO NOT RESUSCITATE. 8. Discharge planning based on clinical progress
--- NOTE | 2017-11-30 13:59 | P.CNPUL ---
History of Present Illness Consult date: 11/30/17 Reason for consult: pneumonia Chief complaint: Altered mental status History of present illness: This is an 82-year-old female with history of multiple medical problems including advanced dementia, follows normally with Dr. Bassett for her dementia. Patient was recently evaluated in the hospital for what seems to be a possible right lower lobe pneumonia, treated with antibiotics, and discharged. The date of her discharge was on 11/15/2017. I reviewed the chest x-ray from that admission, and there was definitely minimal atelectasis at the right base, patient at that time had febrile illness, suspected pneumonia, possibly viral syndrome. At any rate patient was reevaluated on 11/23/2017, continued to show some abnormality at the right base. Clinically the patient does not have any symptoms to suggest active pneumonia, but this time she was brought in mostly because of mental status change, and it is becoming more and more difficult for the family to take care of her at home. Patient is declining to take any of her medications, and she is getting more and more agitated and restless fighting with her and her son at home. In the ER, follow-up chest x- ray was done and it showed swollen worsening of consolidation in the right lower lobe however the patient had no active symptoms whatsoever. However the patient does have dementia, and according to the she has not been coughing, she does not have any symptoms to suspect aspiration, and no fevers. Considering the abnormality and considering her mental status issue patient was admitted, and this consult was initiated. Patient has been losing weight over the last 6 months, and has been incontinent of bowel and urine. She is always confused and agitated. It is clearly getting to the point where the patient will need to have some placement. Review of Systems Unable to obtain, however according the family at bedside, patient has mostly symptoms of mental status changes, agitations, restlessness, confusion, and weight loss about 20 pounds in the last 6 months. No active pulmonary symptoms to suggest active pneumonia. Past Medical History Past Medical History: Dementia, Eye Disorder, GERD/Reflux, Hearing Disorder / Deafness, Hyperlipidemia, Memory Impairment, Musculoskeletal Disorder, Osteoarthritis (OA) Additional Past Medical History / Comment(s): 05-17-15 SYNCOPAL/FALL EPISODE, CHRONIC CONSTIPATION, DEMENTIA/ MEMORY PROBLEMS, BILATERAL GLAUCOMA, CHRONIC LOW BACK PAIN, UTI'S. FULL UPPER PLATE "THAT SNAPS IN PLACE" AND LOWER PARTIAL History of Any Multi-Drug Resistant Organisms: None Reported Past Surgical History: Adenoidectomy, Breast Surgery, Hysterectomy, Tonsillectomy, Tubal Ligation Additional Past Surgical History / Comment(s): Bilateral cataract surgeries with lens implants, right breast benign lumpectomy 1983, bladder suspension surgery, rectocele, colonoscopy in 1999 2006 2011, EGD 2011, bronchoscopy 1987, hemorrhoids, laryngoscope 1989, L thumb cystectomy 2002. Past Anesthesia/Blood Transfusion Reactions: Motion Sickness Smoking Status: Never smoker - Past Family History Mother Family Medical History: Coronary Artery Disease (CAD) Father Family Medical History: Dementia Daughter(s) Family Medical History: No Reported History Son(s) Family Medical History: No Reported History Medications and Allergies Home Medications Medication Instructions Recorded Confirmed Type Omeprazole 40 mg PO QAM 05/17/15 11/29/17 History ALPRAZolam [Xanax] 0.25 mg PO TID PRN 03/11/17 11/29/17 History Calcium Carbonate/Vitamin D3 1 tab PO QAM 03/11/17 11/29/17 History [Calcium 600-Vit D3 400 Caplet] Galantamine HBr [Razadyne] 12 mg PO BID 03/11/17 11/29/17 History Magnesium Chloride [Slow-Mag] 64 mg PO HS 03/11/17 11/29/17 History Memantine [Namenda] 10 mg PO BID 03/11/17 11/29/17 History Multivitamins, Thera [Multivitamin 1 tab PO QAM 04/24/17 11/29/17 History (formulary)] Baclofen [Lioresal] 10 mg PO BID #60 tab 11/15/17 11/29/17 Rx Sertraline HCl [Zoloft] 25 mg PO DAILY 11/29/17 11/29/17 History risperiDONE 0.5 mg PO BID 11/29/17 11/29/17 History Allergies Allergy/AdvReac Type Severity Reaction Status Date / Time No Known Allergies Allergy Verified 11/29/17 11:22 Physical Exam Vitals: Vital Signs Temp Pulse Pulse Resp BP BP Pulse Ox 11/30/17 08:00 16 11/30/17 07:00 97 F L 81 16 148/68 100 11/29/17 23:00 97 F L 116 H 17 168/82 93 L 11/29/17 17:02 98.6 F 88 18 108/66 100 11/29/17 15:43 97.6 F 87 18 120/66 98 11/29/17 14:00 68 18 164/94 99 Intake and Output 11/29/17 11/30/17 11/30/17 22:59 06:59 14:59 Intake Total 100 Balance 100 Intake: Oral 100 Other: Voiding Method Diaper Incontinent # Voids 2 Physical Exam revealed an 82-year-old female, confused, in no distress. Head: Atraumatic, normocephalic. HEENT:[Neck is supple.] [No neck masses.] [No thyromegaly.] [No JVD.] Chest: [Clear throughout, no crackles, no rhonchi, no wheezes.] Cardiac Exam: [Normal S1 and S2, no S3 gallop, no murmur.] Abdomen: [Soft, nontender, no megaly, no rebound, no guarding, normal bowel sounds.] Extremities: [No clubbing, no edema, no cyanosis.] Neurological Exam: [Confused, otherwise No focal neurologic deficit.] Lymphatics: No lymphadenopathy Results - Laboratory Findings CBC and BMP: 11/30/17 07:06 11/30/17 07:06 Abnormal lab findings: Abnormal Labs 11/30/17 11/30/17 07:06 07:06 Lymphocytes # 0.9 L Glucose 111 H Total Protein 5.9 L Albumin 3.4 L - Diagnostic Findings Chest x-ray: image reviewed (Worsening opacity in the right lower lobe, compared to the x-rays done on 11/15 and a chest x-ray done on 11/23.) Assessment and Plan Assessment: Impression: 1 acute right lower lobe pneumonia, felt to be aspiration pneumonia unless proven otherwise. Considering the patient is relatively asymptomatic, wouldn't recommend treatment with oral Augmentin. 2 worsening mental status, worsening dementia, patient may require placement in a fpc. Patient may benefit from a small dose of antipsychotic medications 3 medical debility. Mostly secondary to her underlying dementia. Multiple comorbidities including hyperlipidemia, osteoarthritis, and GERD. Recommendation: Agree with the present treatment plan, will add Augmentin, patient will definitely need evaluation by speech therapist, and evaluate for possible aspiration. We'll continue to follow. Time with Patient: Greater than 30
[2017-11-30] MEDS: AMOXIC-POT CLAV 875-125MG 1 EACH TAB PO SCH ×2 (17:56→21:28)
[2017-11-30] MEDS: MAGNESIUM OXIDE 400 MG TAB PO SCH (21:27)
[2017-12-01] MEDS: AMOXIC-POT CLAV 875-125MG 1 EACH TAB PO SCH ×2 (09:03→20:20)
[2017-12-01] MEDS: ALPRAZolam 0.25 MG TAB PO PRN ×2 (09:03→14:03)
[2017-12-01] MEDS: HEPARIN SODIUM,PORCINE 5,000 UNIT/ML 1 ML VIAL SQ SCH ×2 (09:04→20:15)
[2017-12-01] MEDS: SERTRALINE 25 MG TAB PO SCH (09:04)
[2017-12-01] MEDS: DONEPEZIL 10 MG TAB PO SCH (09:04)
[2017-12-01] MEDS: MEMANTINE 10 MG TAB PO SCH ×2 (09:04→20:22)
[2017-12-01] MEDS: risperiDONE 0.5 MG TAB PO SCH (09:04)
[2017-12-01] MEDS: MULTIVITAMINS, THERA 1 EACH TAB PO SCH (09:04)
[2017-12-01] MEDS: CALCIUM CARB-VIT D 500MG-200UN 1 EACH TAB PO SCH (09:04)
--- NOTE | 2017-12-01 11:16 | P.PN ---
Subjective Progress Note Date: 12/01/17 Principal diagnosis: Altered mental status and agitation Patient continued to be hemodynamically stable suffered from worsening agitation at the nighttime which requested staff to inject patient with Haldol multiple times patient seems to be more calm this morning holding her hand less confused and seems to be following simple commands. Patient ordered breakfast and ate 50% of her food this morning but still refusing to take her pills Objective - Vital Signs Vital signs: Vital Signs Temp 97.9 F 12/01/17 07:00 Pulse 83 12/01/17 07:00 Resp 16 12/01/17 07:00 BP 109/65 12/01/17 07:00 Pulse Ox 93 L 12/01/17 07:00 Intake & Output 11/30/17 12/01/17 12/01/17 18:59 06:59 18:59 Intake Total 450 Balance 450 Intake: Oral 450 Other: Voiding Method Diaper Bedpan Incontinent Diaper Incontinent # Voids 2 2 - Exam Gen.: in stated age, no acute distress Heart: Normal S1-S2 Lungs: Clear to auscultation bilaterally Abdomen: Soft, no tenderness, positive bowel sounds in all 4 quadrant no guarding or rebound Skin: No new rash Psych: Alert and oriented 3 Neuro: No focal deficit - Labs CBC & Chem 7: 11/30/17 07:06 11/30/17 07:06 Labs: Microbiology - Last 24 Hours (Table) 11/29/17 14:23 Blood Culture - Preliminary Blood No Growth after 24 hours Assessment and Plan Assessment: 1. Acute encephalopathy. Again it's multifactorial with worsening dementia and aspiration pneumonia. I would like to follow-up with psychiatry recommendation regarding worsening dementia and agitation to optimize her medication on discharge 2. Right lower lobe pneumonia likely suggesting aspiration patient is afebrile with normal white blood count I would like to continue monitoring closely and have speech evaluate the patient once she is more awake. Plan discussed with the and son at the bedside needed 3. Severe debility and deconditioning. We'll have physical and occasional therapy evaluation and I discussed with the patient son and that patient 's meet the criteria for hospice admission given the significant declining in her functional and cognitive function, ongoing weight loss for greater than 20 pounds in the last 6 month, recurrent infection and likely dysphagia with aspiration. Hospice have met with Family and they are agreeable to admission we would consider discharging patients to a correction facility and would have hospice takeover once patient's at the rehab 4. Hyperlipidemia. We'll introduce her medication once patient is more awake. 5. GERD. We will continue her home medication. 6. Agitation and restlessness. I prescribed Haldol 2 mg IM every 4 hours as needed but I would like to obtain psychiatric evaluation for medication recommendation and we will follow-up with the recommendation. 7. CODE STATUS DO NOT RESUSCITATE. 8. Discharge planning based on clinical progress
[2017-12-01] MEDS ORDERED: HALOPERIDOL LACTATE 5 MG/ML 1 ML VIAL IM PRN (16:10)
--- NOTE | 2017-12-01 16:10 | P.CN ---
Psychiatric Consult - . Consult date: 12/01/17 Consult:: 12/01/17 15:53 Identification: Patient is an 82-year-old female who was admitted for agitation , restlessness, refusing medications have been treated for a UTI and and possible pneumonia. Patient has a diagnosis of advanced dementia Reason for Consult: Recommendation for medications History of Present Illness: Patient was seen in her chart was reviewed, the primary historians were her and son who are both present in the room. Apparently patient began having memory problems over 5 years ago that have recently progressed until the last 8 months patient has been having increasing difficulty. Patient prior to this time was able to dress and bathe herself. However now the patient needs assistance with bathing, dressing and needs assistance feeding herself. Patient at home began becoming verbally abusive combative and refusing medications and was begun on Risperdal but probably took only 2 tablets at home. Patient's states that she became more combative the last 2 weeks was difficult to assist her with things that she became increasingly angry. Over the last several weeks she has also been eating less. He states that it was a beyer every night for her to take her medicine. Patient is also incontinent at night and needs assistance with toileting. He also reported that the patient doesn't recognize her own image when she sees it in a mere, can can become quite frightened. She has not been wandering at night. Patient does recognize her and son, and her reports that he is unable to continue to care for her at home. He states that she was cooking with some supervision up to 8 months ago. Patient's son states that his mother was always very organized and neat. 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 Past Psychiatric History: Patient has no prior psychiatric history Past Medical/Surgical History: patient has a history of GERD, hyperlipidemia, osteoarthritis, she does use hearing aids but does not have them here, status post hysterectomy status post bladder suspension. Dementia unknown etiology Family History: No family history psychiatric problems Social History: patient has been to her for 66 years and they have 4 children 3 daughters and 1 son. 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 They live in a one floor ranch house and she was described by her son as always being extremely neat and organized. He describes her neatness as she would worm picker a relief off of their deck. Substance Use History: Patient has no history of drug or alcohol use Legal History: no legal history Mental status: Appearance/Attitude: Patient is lying in a hospital bed, in no acute distress makes intermittent eye contact Behavior: Patient was constantly trying to pull her gown off, pull the blanket off, try to get up out of bed Speech/Language: Patient would request that she go sit near her , she responded to some questions relevantly, but was not able to participate in the interview Thought Process: Patient was unable to respond to most questions, Thought Content: Patient does not appear to be responding to internal stimuli or visual hallucinations, she did not verbalize any paranoid ideation. She has not been sleeping well at night and not been eating well at home as well as refusing medications at home. She has been increasingly irritable and angry at home and difficult to assist. Son and states she has never been physically combative. Suicidal/Homicidal Ideation: Patient has not verbalized any suicidal or homicidal ideation to her or son Sensorium/Cognition: Patient is alert and oriented to person, she was not oriented to location or date and didn't recognize her son and . Further cognitive testing was not performed Mood/Affect: Patient's mood was slightly irritable at times when she was not allowed to take her gown off and her affect was slightly blunted Insight/Judgment: Patient's insight and judgment are impaired Assessment: Patient presents with a history of dementia that is advanced, the family did not know the etiology. Patient has had memory difficulties going back as far as 5 years ago and over the last year has had increasing difficulty with her ADLs now requiring assistance with all of them. Patient over the last several weeks has become increasingly angry and irritable refusing to take her meds and becoming verbally abusive. She was begun on Risperdal but only took 2 tablets at home. Patient has also been getting Xanax on an as-needed basis at home and in the hospital as well as having received 2 mg of IM Haldol last evening. Patient is also on Zoloft 25 mg the family was unaware of how long she had been on this medication. Patient has obvious evidence of major neurocognitive disorder and that she is unable to care for her ADLs. She is oriented only to person, requiring assistance to perform all activities of daily living. Diagnosis: major neurocognitive disorder, unknown etiology with behavioral disturbance Plan: We will change the patient from Risperdal to Seroquel due to her difficulty sleeping at night to see if this assists with her sleep and agitation and will begin her on 25 mg in the morning and 50 mg at 5 PM. We will change her Zoloft to Celexa 10 mg in the morning to see if this is more effective in decreasing her irritability. Will change her Haldol to 0.5 mg IM every 12 hours when necessary for severe agitation, due to the possibility of EPS and a dystonic reaction. Patient's family was agreeable to these changes in the medication I discussed the changes with nursing staff. We'll continue to follow the patient and adjust her medications accordingly. Patient's agitation and also be secondary to possible infection. Would use the Xanax infrequently as this may also increase her confusion and agitation.
[2017-12-01] MEDS: QUEtiapine 50 MG TAB PO SCH (17:59)
[2017-12-01] MEDS: MAGNESIUM OXIDE 400 MG TAB PO SCH (20:20)
[2017-12-02] MEDS: HEPARIN SODIUM,PORCINE 5,000 UNIT/ML 1 ML VIAL SQ SCH ×2 (08:10→20:46)
[2017-12-02] MEDS: AMOXIC-POT CLAV 875-125MG 1 EACH TAB PO SCH ×2 (08:10→20:46)
[2017-12-02] MEDS: DONEPEZIL 10 MG TAB PO SCH (08:11)
[2017-12-02] MEDS: MEMANTINE 10 MG TAB PO SCH ×2 (08:11→20:46)
[2017-12-02] MEDS: CALCIUM CARB-VIT D 500MG-200UN 1 EACH TAB PO SCH (08:11)
[2017-12-02] MEDS: MULTIVITAMINS, THERA 1 EACH TAB PO SCH (08:12)
[2017-12-02] MEDS: QUEtiapine 25 MG TAB PO SCH (08:12)
--- NOTE | 2017-12-02 11:31 | P.PN ---
Subjective Progress Note Date: 12/02/17 Principal diagnosis: Acute right lower lobe pneumonia, possibly aspiration This is an 82-year-old female with history of multiple medical problems including advanced dementia, follows normally with Dr. Bassett for her dementia. Patient was recently evaluated in the hospital for what seems to be a possible right lower lobe pneumonia, treated with antibiotics, and discharged. The date of her discharge was on 11/15/2017. I reviewed the chest x-ray from that admission, and there was definitely minimal atelectasis at the right base, patient at that time had febrile illness, suspected pneumonia, possibly viral syndrome. At any rate patient was reevaluated on 11/23/2017, continued to show some abnormality at the right base. Clinically the patient does not have any symptoms to suggest active pneumonia, but this time she was brought in mostly because of mental status change, and it is becoming more and more difficult for the family to take care of her at home. Patient is declining to take any of her medications, and she is getting more and more agitated and restless fighting with her and her son at home. In the ER, follow-up chest x- ray was done and it showed swollen worsening of consolidation in the right lower lobe however the patient had no active symptoms whatsoever. However the patient does have dementia, and according to the she has not been coughing, she does not have any symptoms to suspect aspiration, and no fevers. Considering the abnormality and considering her mental status issue patient was admitted, and this consult was initiated. Patient has been losing weight over the last 6 months, and has been incontinent of bowel and urine. She is always confused and agitated. It is clearly getting to the point where the patient will need to have some placement. On 12/02/2017 patient is seen in follow-up on medical surgical floor. She is resting comfortably in bed, sleeping, she has received some hauled all for her restlessness last night. Her son and her are at the bedside. Patient does have intermittent coughing in her sleep, the head of the bed is elevated at 30, lung sounds are positive for a few scattered rhonchi, but no acute dyspnea wheezing or rales auscultated. No febrile episodes. She remains on room air with O2 sat at 95%. No acute events overnight. Blood culture remains negative at the 48 hour tejas. Patient remains on Augmentin for possible aspiration pneumonia. Arrangements are being made for placement to [facility] nursing and rehab. Objective - Vital Signs Vital signs: Vital Signs Temp 97.9 F 12/01/17 07:00 Pulse 94 12/01/17 15:00 Resp 18 12/01/17 15:00 BP 111/58 12/01/17 15:00 Pulse Ox 95 12/01/17 15:00 Intake & Output 12/01/17 12/02/17 12/02/17 18:59 06:59 18:59 Intake Total 450 790 Balance 450 790 Weight 52.163 kg Intake: Oral 450 790 Other: Voiding Method Bedpan Bedside Commode Incontinent Diaper Diaper Incontinent # Voids 2 1 1 - Exam Physical Exam revealed an 82-year-old female, confused, in no distress. Head: Atraumatic, normocephalic. HEENT:[Neck is supple.] [No neck masses.] [No thyromegaly.] [No JVD.] Chest: [Good air entry bilaterally, a few scattered rhonchi in the upper lobes bilaterally.] Cardiac Exam: [Normal S1 and S2, no S3 gallop, no murmur.] Abdomen: [Soft, nontender, no megaly, no rebound, no guarding, normal bowel sounds.] Extremities: [No clubbing, no edema, no cyanosis.] Neurological Exam: [Confused, otherwise No focal neurologic deficit.] Lymphatics: No lymphadenopathy - Labs CBC & Chem 7: 11/30/17 07:06 11/30/17 07:06 Labs: Microbiology - Last 24 Hours (Table) 11/29/17 14:23 Blood Culture - Preliminary Blood No Growth after 48 hours Assessment and Plan Plan: Assessment: 1 acute right lower lobe pneumonia, felt to be aspiration pneumonia unless proven otherwise. Considering the patient is relatively asymptomatic, wouldn't recommend treatment with oral Augmentin. 2 worsening mental status, worsening dementia, patient may require placement in a senior care. Patient may benefit from a small dose of antipsychotic medications 3 medical debility. Mostly secondary to her underlying dementia. Multiple comorbidities including hyperlipidemia, osteoarthritis, and GERD. Recommendation: Continue with current medical treatment, patient remains stable, does have intermittent coughing, maintain aspiration precautions. The family denies observing patient in any acute distress or denies observing any difficulty breathing. From pulmonary standpoint patient is stable for discharge to [facility] and rehab on a 7 day course of Augmentin. I performed a history & physical examination of the patient and discussed their management with my nurse practitioner, Estella Miguel. I reviewed the nurse practitioner's note and agree with the documented findings and plan of care. Lung sounds are positive for a few scattered rhonchi in the upper lobes. The findings and the impression was discussed with the patient. I attest to the documentation by the nurse practitioner. Time with Patient: Less than 30
--- NOTE | 2017-12-02 13:01 | P.DS ---
Providers Date of admission: 11/29/17 13:30 Expected date of discharge: 12/02/17 Attending physician: Desmond John Consults: 11/29/17 18:44 Consult Physician Routine Consulting Provider: Mark Bryant Consult Reason/Comments: pneumonia Do you want consulting provider notified?: Yes 12/01/17 10:10 Consult Physician Routine Consulting Provider: Kiara Elder Consult Reason/Comments: dementia, aggressive behavior Do you want consulting provider notified?: Yes Primary care physician: [facility] Hospital Course: This is 82 years old female with past medical history significant for advanced dementia presents to the emergency department with worsening mental status according to her who is at the bedside. and son-in-law at the bedside admitting having worsening in her mentation over the last 6 month and much worse in the last 1 month where patient was taken to her primary care physician and was treated for urinary tract infection with 6 days course of antibiotics that she completed the patient continued to decline and then the last 5 days patient has been refusing her medication especially had oral medication and being agitated and restless and fighting with her and her son and becoming overwhelming at home. In the emergency department chest x- ray showed worsening consolidation on the right lower lobe and patient was admitted for pneumonia and worsening mentation. Patient currently is lethargic and sleepy due to frequent medication and sedation patient had difficulty night where she was extremely combative agitated pulled out her IVs and was requiring setup 24 7 to be at the bedside. No history of tobacco alcohol or drug abuse and patient quit taking her medication almost a week ago. Patient had significant weight loss for greater than 20 pounds over the last 6 month becoming dependent on all 6 out of 6 of her daily activities incontinence for bowel and bladder most of the time and patient's is confused and agitated not able to recognize even family members but still can speak in more than 6 words 12/01: Patient continued to be hemodynamically stable suffered from worsening agitation at the nighttime which requested staff to inject patient with Haldol multiple times patient seems to be more calm this morning holding her hand less confused and seems to be following simple commands. Patient ordered breakfast and ate 50% of her food this morning but still refusing to take her pills 12/02: Patient has been seen by Dr. Bryant and he has added and Augmentin for possible aspiration pneumonia. Patient has been seen by Dr. Elder from psychiatry recommending changing Risperdal to Seroquel at 25 mg the morning and 50 mg at 5 PM and change Zoloft to Celexa 10 mg in the morning to decrease irritability. Haldol changed to 0.5 IM every 12 hours as necessary Xanax to be given infrequently. These changes will be continued for ECF. Plan is for discharge to ECF today in stable condition. Discharge Diagnoses: 1. Acute encephalopathy multifactorial with worsening dementia and aspiration pneumonia. 2. Right lower lobe pneumonia likely suggesting aspiration 3. Severe debility and deconditioning. 4. Hyperlipidemia. 5. GERD. 6. Agitation and restlessness secondary to dementia. Discharge plan: ECF Impression and plan of care have been directed as dictated by the signing physician. Yenni Harden nurse practitioner acting as scribe for signing physician. Patient Condition at Discharge: Good Plan - Discharge Summary Discharge Rx Participant: No New Discharge Prescriptions: New Amoxic-Pot Clav 875-125Mg [Augmentin 875-125] 1 each PO Q12HR #14 tab QUEtiapine [SEROquel] 50 mg PO 1700 tab QUEtiapine [SEROquel] 25 mg PO DAILY tab Citalopram Hydrobromide [CeleXA] 10 mg PO DAILY #30 tablet Continue Omeprazole 40 mg PO QAM Memantine [Namenda] 10 mg PO BID Magnesium Chloride [Slow-Mag] 64 mg PO HS Calcium Carbonate/Vitamin D3 [Calcium 600-Vit D3 400 Caplet] 1 tab PO QAM Galantamine HBr [Razadyne] 12 mg PO BID Multivitamins, Thera [Multivitamin (formulary)] 1 tab PO QAM Changed ALPRAZolam [Xanax] 0.25 mg PO BID #60 tablet Discontinued Baclofen [Lioresal] 10 mg PO BID #60 tab risperiDONE 0.5 mg PO BID Sertraline HCl [Zoloft] 25 mg PO DAILY Discharge Medication List Omeprazole 40 mg PO QAM 05/17/15 [History] Calcium Carbonate/Vitamin D3 [Calcium 600-Vit D3 400 Caplet] 1 tab PO QAM [History] Galantamine HBr [Razadyne] 12 mg PO BID 03/11/17 [History] Magnesium Chloride [Slow-Mag] 64 mg PO HS 03/11/17 [History] Memantine [Namenda] 10 mg PO BID 03/11/17 [History] Multivitamins, Thera [Multivitamin (formulary)] 1 tab PO QAM 04/24/17 [History] ALPRAZolam [Xanax] 0.25 mg PO BID #60 tablet 12/02/17 [Rx] Amoxic-Pot Clav 875-125Mg [Augmentin 875-125] 1 each PO Q12HR #14 tab 12/02/17 [ Rx] Citalopram Hydrobromide [CeleXA] 10 mg PO DAILY #30 tablet 12/02/17 [Rx] QUEtiapine [SEROquel] 25 mg PO DAILY tab 12/02/17 [Rx] QUEtiapine [SEROquel] 50 mg PO 1700 tab 12/02/17 [Rx] Follow up Appointment(s)/Referral(s): Desmond John MD [Primary Care Provider] - 1-2 days
[2017-12-02] MEDS: QUEtiapine 50 MG TAB PO SCH (17:50)
[2017-12-02] MEDS: MAGNESIUM OXIDE 400 MG TAB PO SCH (20:46)
[2017-12-03 00:17] VITALS: RESP 16
[2017-12-03 08:03] VITALS: BP 137/79; PULSE 82; TEMP 97.9
[2017-12-03] MEDS: MULTIVITAMINS, THERA 1 EACH TAB PO SCH (09:29)
[2017-12-03] MEDS: DONEPEZIL 10 MG TAB PO SCH (09:29)
[2017-12-03] MEDS: CALCIUM CARB-VIT D 500MG-200UN 1 EACH TAB PO SCH (09:29)
[2017-12-03] MEDS: QUEtiapine 25 MG TAB PO SCH (09:29)
[2017-12-03] MEDS: AMOXIC-POT CLAV 875-125MG 1 EACH TAB PO SCH (09:29)
[2017-12-03] MEDS: MEMANTINE 10 MG TAB PO SCH (09:29)
[2017-12-03] MEDS: HEPARIN SODIUM,PORCINE 5,000 UNIT/ML 1 ML VIAL SQ SCH (09:29)
== END 2017-12-03 10:10 | DRG 177 ==
LOC: EC 10:24 → 4MS4W 13:30 → 5MS5E 15:31
PROVIDERS: ADMIT Internal Medicine Geriatric Medicine; ATTEND Internal Medicine Geriatric Medicine
DX: J69.0 Pneumonitis due to inhalation of food and vomit (principal); G93.40 Encephalopathy, unspecified; F03.91 Unspecified dementia, unspecified severity, with behavioral disturbance; E78.5 Hyperlipidemia, unspecified; H40.9 Unspecified glaucoma; H91.90 Unspecified hearing loss, unspecified ear; K21.9 Gastro-esophageal reflux disease without esophagitis; Z66 Do not resuscitate; Z79.899 Other long term (current) drug therapy; Z82.49 Family history of ischemic heart disease and other diseases of the circulatory system; Z90.710 Acquired absence of both cervix and uterus; Z91.14 Patient's other noncompliance with medication regimen; Z96.1 Presence of intraocular lens
CPT/HCPCS: 36415; 71045; 71046; 80053; 81003; 85025; 87040; 96365; 99285